=== PATIENT | female | born 1935 | race Caucasian/White ===

== ENCOUNTER 2019-04-02 16:31 | Inpatient (IN) | payer MEDICARE ==
[2019-04-02 16:39] LABS: Glucose,Whole Blood 137 mg/dL (75-99)
[2019-04-02] MEDS ORDERED: SODIUM CHLORIDE 0.9% 500 ML 500 ML IV STA (16:39)
--- NOTE | 2019-04-02 16:48 | ED ---
General Adult HPI - General Chief complaint: Altered Mental Status Stated complaint: Poss overdose Time Seen by Provider: 04/02/19 16:35 Source: EMS, RN notes reviewed Mode of arrival: EMS Limitations: altered mental status - History of Present Illness Initial comments: This is an 83-year-old female presents to the emergency department secondary to her being unresponsive at home. EMS arrived and had a blood sugar in the 20s and they gave her an amp of D50 and it was read high and the next rate and then it was down to 200s on the following week. Patient was not responding to them at all however currently she is able to follow simple commands though she is not yet speaking clearly. She is able to move all 4 extremity. No further history is available at this time. There is no evidence per EMS that she purposely overdosed on insulin. - Related Data Home Medications Medication Instructions Recorded Confirmed Atorvastatin [Lipitor] 40 mg PO DAILY 04/02/19 04/02/19 Cholecalciferol [Vitamin D3 (25 1,000 unit PO DAILY 04/02/19 04/02/19 Mcg = 1000 Iu)] Enalapril/Hydrochlorothiazide 1 tab PO DAILY 04/02/19 04/02/19 [Enalapril-Hctz 10-25 mg Tablet] Insulin Degludec [Tresiba 40 units SQ DAILY 04/02/19 04/02/19 Flextouch U-100] metFORMIN HCL ER [Glucophage Xr] 500 mg PO DAILY 04/02/19 04/02/19 traMADol HCL [Ultram] 50 mg PO Q6HR PRN 04/02/19 04/02/19 Allergies Allergy/AdvReac Type Severity Reaction Status Date / Time Sulfa (Sulfonamide Allergy Severe Anaphylaxis Verified 04/02/19 18:32 Antibiotics) Review of Systems ROS Statement: Those systems with pertinent positive or pertinent negative responses have been documented in the HPI. ROS Other: All systems not noted in ROS Statement are negative. Past Medical History Past Medical History: Diabetes Mellitus Additional Past Medical History / Comment(s): unable to obtain further due to mentation History of Any Multi-Drug Resistant Organisms: Unobtainable Past Surgical History: Unable to Obtain Past Psychological History: Unable to Obtain Smoking Status: Unknown if ever smoked Past Alcohol Use History: Unable to Obtain Past Drug Use History: Unable to Obtain General Exam - General Exam Comments Initial Comments: GENERAL: Patient is well-developed and well-nourished. Patient is nontoxic and well- hydrated and is in no acute distress. ENT: Neck is soft and supple. No significant lymphadenopathy is noted. Oropharynx is clear. Moist mucous membranes. Neck has full range of motion without eliciting any pain. EYES: The sclera were anicteric and conjunctiva were pink and moist. Extraocular movements were intact and pupils were equal round and reactive to light. Eyelids were unremarkable. PULMONARY: Unlabored respirations. Good breath sounds bilaterally. No audible rales rhonchi or wheezing was noted. CARDIOVASCULAR: There is a regular rate and rhythm without any murmurs gallops or rubs. ABDOMEN: Soft and nontender with normal bowel sounds. SKIN: Skin is clear with no lesions or rashes and otherwise unremarkable. NEUROLOGIC: Patient is alert and and able to follow simple commands but not able to speak clearly at this point. Patient is able to move all 4 extremities. MUSCULOSKELETAL: Patient moves all 4 fomites but I cannot get her to move through full range of motion quite yet. LYMPHATICS: No significant lymphadenopathy is noted PSYCHIATRIC: Normal psychiatric evaluation. Limitations: altered mental status Course Vital Signs 04/02/19 04/02/19 04/02/19 16:36 16:58 17:01 Temperature 93.3 F L 93.4 F L Pulse Rate 104 H 109 H Respiratory 24 32 H Rate Blood Pressure 158/95 135/86 O2 Sat by Pulse 90 L 94 L 97 Oximetry 04/02/19 04/02/19 04/02/19 17:21 17:33 17:47 Temperature 93.9 F L 94.3 F L 94.6 F L Pulse Rate 106 H 103 H Respiratory 22 22 Rate Blood Pressure 152/116 135/77 O2 Sat by Pulse 96 95 Oximetry 04/02/19 04/02/19 04/02/19 18:01 18:15 18:25 Temperature 95.0 F L 95.2 F L 95.6 F L Pulse Rate 102 H 98 103 H Respiratory 22 22 22 Rate Blood Pressure 127/98 147/93 O2 Sat by Pulse 93 L 95 97 Oximetry 04/02/19 04/02/19 04/02/19 18:37 18:49 19:00 Temperature 96.0 F L 96.3 F L 96.7 F L Pulse Rate 101 H 98 99 Respiratory 22 20 20 Rate Blood Pressure 169/90 124/78 118/84 O2 Sat by Pulse 98 97 99 Oximetry 04/02/19 19:15 Temperature 97.0 F L Pulse Rate 98 Respiratory 16 Rate Blood Pressure 102/78 O2 Sat by Pulse 98 Oximetry Medical Decision Making - Medical Decision Making EKG shows sinus tachycardia at 105 bpm OK interval 148 QRS is 70 QT interval 354 and QTC is 467. Patient's EKG shows no ST segment elevation. CT of the brain shows no acute abnormality. Chest x-ray shows a right lobe consolidation. Patient started 2 g Rocephin. Patient's sugar continued to fall and 70 so we started the patient on D5 0.45. We ran the rate is 75 an hour. She was much more alert and oriented to her arrival. Patient's temperature was also coming up with the Bakari hugger and warm. I spoke with Dr. elizaebth he agreed to admit the patient admitted the patient wrote admitting orders - Lab Data Result diagrams: 04/02/19 16:45 04/02/19 16:45 Lab Results 04/02/19 04/02/19 04/02/19 Range/Units 16:37 16:45 16:45 WBC 15.4 H (3.8-10.6) k/uL RBC 4.63 (3.80-5.40) m/uL Hgb 13.2 (11.4-16.0) gm/dL Hct 39.7 (34.0-46.0) % MCV 85.9 (80.0-100.0) fL MCH 28.5 (25.0-35.0) pg MCHC 33.2 (31.0-37.0) g/dL RDW 13.6 (11.5-15.5) % Plt Count 414 (150-450) k/uL Neutrophils % 90 % Lymphocytes % 4 % Monocytes % 5 % Eosinophils % 0 % Basophils % 0 % Neutrophils # 13.9 H (1.3-7.7) k/uL Lymphocytes # 0.7 L (1.0-4.8) k/uL Monocytes # 0.8 (0-1.0) k/uL Eosinophils # 0.0 (0-0.7) k/uL Basophils # 0.0 (0-0.2) k/uL PT (9.0-12.0) sec INR (<1.2) APTT (22.0-30.0) sec Sodium 132 L (137-145) mmol/L Potassium 3.5 (3.5-5.1) mmol/L Chloride 98 (98-107) mmol/L Carbon Dioxide 24 (22-30) mmol/L Anion Gap 10 mmol/L BUN 31 H (7-17) mg/dL Creatinine 0.74 (0.52-1.04) mg/dL Est GFR (CKD-EPI)AfAm 87 (>60 ml/min/1.73 sqM) Est GFR (CKD-EPI)NonAf 75 (>60 ml/min/1.73 sqM) Glucose 169 H (74-99) mg/dL POC Glucose (mg/dL) 137 H (75-99) mg/dL POC Glu Assurance Analyst ID Denise Briones Calcium 9.6 (8.4-10.2) mg/dL Magnesium 2.0 (1.6-2.3) mg/dL Total Bilirubin 0.3 (0.2-1.3) mg/dL AST 65 H (14-36) U/L ALT 28 (9-52) U/L Alkaline Phosphatase 124 (38-126) U/L Troponin I (0.000-0.034) ng/mL Total Protein 6.6 (6.3-8.2) g/dL Albumin 3.6 (3.5-5.0) g/dL Urine Color Urine Appearance (Clear) Urine pH (5.0-8.0) Ur Specific [place] (1.001-1.035) Urine Protein (Negative) Urine Glucose (UA) (Negative) Urine Ketones (Negative) Urine Blood (Negative) Urine Nitrite (Negative) Urine Bilirubin (Negative) Urine Urobilinogen (<2.0) mg/dL Ur Leukocyte Esterase (Negative) Urine RBC (0-5) /hpf Urine WBC (0-5) /hpf Urine WBC Clumps (None) /hpf Ur Squamous Epith Cells (0-4) /hpf Urine Bacteria (None) /hpf Urine Mucus (None) /hpf 04/02/19 04/02/19 04/02/19 Range/Units 16:45 16:45 16:45 WBC (3.8-10.6) k/uL RBC (3.80-5.40) m/uL Hgb (11.4-16.0) gm/dL Hct (34.0-46.0) % MCV (80.0-100.0) fL MCH (25.0-35.0) pg MCHC (31.0-37.0) g/dL RDW (11.5-15.5) % Plt Count (150-450) k/uL Neutrophils % % Lymphocytes % % Monocytes % % Eosinophils % % Basophils % % Neutrophils # (1.3-7.7) k/uL Lymphocytes # (1.0-4.8) k/uL Monocytes # (0-1.0) k/uL Eosinophils # (0-0.7) k/uL Basophils # (0-0.2) k/uL PT 10.3 (9.0-12.0) sec INR 1.0 (<1.2) APTT 26.9 (22.0-30.0) sec Sodium (137-145) mmol/L Potassium (3.5-5.1) mmol/L Chloride (98-107) mmol/L Carbon Dioxide (22-30) mmol/L Anion Gap mmol/L BUN (7-17) mg/dL Creatinine (0.52-1.04) mg/dL Est GFR (CKD-EPI)AfAm (>60 ml/min/1.73 sqM) Est GFR (CKD-EPI)NonAf (>60 ml/min/1.73 sqM) Glucose (74-99) mg/dL POC Glucose (mg/dL) (75-99) mg/dL POC Glu Assurance Analyst ID Calcium (8.4-10.2) mg/dL Magnesium (1.6-2.3) mg/dL Total Bilirubin (0.2-1.3) mg/dL AST (14-36) U/L ALT (9-52) U/L Alkaline Phosphatase (38-126) U/L Troponin I <0.012 (0.000-0.034) ng/mL Total Protein (6.3-8.2) g/dL Albumin (3.5-5.0) g/dL Urine Color Yellow Urine Appearance Cloudy H (Clear) Urine pH 5.0 (5.0-8.0) Ur Specific [place] 1.016 (1.001-1.035) Urine Protein 1+ H (Negative) Urine Glucose (UA) Negative (Negative) Urine Ketones Negative (Negative) Urine Blood Negative (Negative) Urine Nitrite Negative (Negative) Urine Bilirubin Negative (Negative) Urine Urobilinogen <2.0 (<2.0) mg/dL Ur Leukocyte Esterase Large H (Negative) Urine RBC 1 (0-5) /hpf Urine WBC 30 H (0-5) /hpf Urine WBC Clumps Few H (None) /hpf Ur Squamous Epith Cells 2 (0-4) /hpf Urine Bacteria Rare H (None) /hpf Urine Mucus Rare H (None) /hpf 04/02/19 04/02/19 04/02/19 Range/Units 17:34 17:51 18:15 WBC (3.8-10.6) k/uL RBC (3.80-5.40) m/uL Hgb (11.4-16.0) gm/dL Hct (34.0-46.0) % MCV (80.0-100.0) fL MCH (25.0-35.0) pg MCHC (31.0-37.0) g/dL RDW (11.5-15.5) % Plt Count (150-450) k/uL Neutrophils % % Lymphocytes % % Monocytes % % Eosinophils % % Basophils % % Neutrophils # (1.3-7.7) k/uL Lymphocytes # (1.0-4.8) k/uL Monocytes # (0-1.0) k/uL Eosinophils # (0-0.7) k/uL Basophils # (0-0.2) k/uL PT (9.0-12.0) sec INR (<1.2) APTT (22.0-30.0) sec Sodium (137-145) mmol/L Potassium (3.5-5.1) mmol/L Chloride (98-107) mmol/L Carbon Dioxide (22-30) mmol/L Anion Gap mmol/L BUN (7-17) mg/dL Creatinine (0.52-1.04) mg/dL Est GFR (CKD-EPI)AfAm (>60 ml/min/1.73 sqM) Est GFR (CKD-EPI)NonAf (>60 ml/min/1.73 sqM) Glucose (74-99) mg/dL POC Glucose (mg/dL) 101 H 68 L 207 H (75-99) mg/dL POC Glu Assurance Analyst ID Wiseheart, Denise Wiseheart, Denise Wiseheart, Denise Calcium (8.4-10.2) mg/dL Magnesium (1.6-2.3) mg/dL Total Bilirubin (0.2-1.3) mg/dL AST (14-36) U/L ALT (9-52) U/L Alkaline Phosphatase (38-126) U/L Troponin I (0.000-0.034) ng/mL Total Protein (6.3-8.2) g/dL Albumin (3.5-5.0) g/dL Urine Color Urine Appearance (Clear) Urine pH (5.0-8.0) Ur Specific [place] (1.001-1.035) Urine Protein (Negative) Urine Glucose (UA) (Negative) Urine Ketones (Negative) Urine Blood (Negative) Urine Nitrite (Negative) Urine Bilirubin (Negative) Urine Urobilinogen (<2.0) mg/dL Ur Leukocyte Esterase (Negative) Urine RBC (0-5) /hpf Urine WBC (0-5) /hpf Urine WBC Clumps (None) /hpf Ur Squamous Epith Cells (0-4) /hpf Urine Bacteria (None) /hpf Urine Mucus (None) /hpf 04/02/19 04/02/19 04/02/19 Range/Units 18:32 18:47 19:13 WBC (3.8-10.6) k/uL RBC (3.80-5.40) m/uL Hgb (11.4-16.0) gm/dL Hct (34.0-46.0) % MCV (80.0-100.0) fL MCH (25.0-35.0) pg MCHC (31.0-37.0) g/dL RDW (11.5-15.5) % Plt Count (150-450) k/uL Neutrophils % % Lymphocytes % % Monocytes % % Eosinophils % % Basophils % % Neutrophils # (1.3-7.7) k/uL Lymphocytes # (1.0-4.8) k/uL Monocytes # (0-1.0) k/uL Eosinophils # (0-0.7) k/uL Basophils # (0-0.2) k/uL PT (9.0-12.0) sec INR (<1.2) APTT (22.0-30.0) sec Sodium (137-145) mmol/L Potassium (3.5-5.1) mmol/L Chloride (98-107) mmol/L Carbon Dioxide (22-30) mmol/L Anion Gap mmol/L BUN (7-17) mg/dL Creatinine (0.52-1.04) mg/dL Est GFR (CKD-EPI)AfAm (>60 ml/min/1.73 sqM) Est GFR (CKD-EPI)NonAf (>60 ml/min/1.73 sqM) Glucose (74-99) mg/dL POC Glucose (mg/dL) 140 H 115 H 87 (75-99) mg/dL POC Glu Assurance Analyst ID Jay, Paola Wiseheart, Denise Wiseheart, Denise Calcium (8.4-10.2) mg/dL Magnesium (1.6-2.3) mg/dL Total Bilirubin (0.2-1.3) mg/dL AST (14-36) U/L ALT (9-52) U/L Alkaline Phosphatase (38-126) U/L Troponin I (0.000-0.034) ng/mL Total Protein (6.3-8.2) g/dL Albumin (3.5-5.0) g/dL Urine Color Urine Appearance (Clear) Urine pH (5.0-8.0) Ur Specific [place] (1.001-1.035) Urine Protein (Negative) Urine Glucose (UA) (Negative) Urine Ketones (Negative) Urine Blood (Negative) Urine Nitrite (Negative) Urine Bilirubin (Negative) Urine Urobilinogen (<2.0) mg/dL Ur Leukocyte Esterase (Negative) Urine RBC (0-5) /hpf Urine WBC (0-5) /hpf Urine WBC Clumps (None) /hpf Ur Squamous Epith Cells (0-4) /hpf Urine Bacteria (None) /hpf Urine Mucus (None) /hpf Disposition Clinical Impression: Altered mental status, Hypoglycemia, Pneumonia, Hyponatremia, Urinary tract infection Disposition: ADMITTED IP TO THIS HOSP Referrals: None,Stated [Primary Care Provider] - 1-2 days Time of Disposition: 19:21
[2019-04-02 17:10] LABS: Appearance,Urine Cloudy (Clear); Bacteria,Urine Rare /hpf; Bilirubin,Urine Negative (Negative); Blood,Urine Negative (Negative); Color,Urine Yellow; Glucose,Urine (UA) Negative (Negative); Ketones,Urine Negative (Negative); Leukocyte Esterase,Urine Large (Negative); Mucus,Urine Rare /hpf; Nitrite,Urine Negative (Negative); Protein,Urine 1+ (Negative); RBC,Urine 1 /hpf (0-5); Specific Gravity,Urine 1.016 (1.001-1.035); Squamous Epithelial Cell,Urine 2 /hpf (0-4); Urobilinogen,Urine <2.0 mg/dL (<2.0); WBC,Urine 30 /hpf (0-5)
[2019-04-02 17:15] LABS: Partial Thromboplastin Time 26.9 sec (22.0-30.0); Prothrombin Time 10.3 sec (9.0-12.0)
[2019-04-02 17:17] LABS: Albumin 3.6 g/dL (3.5-5.0); Calcium 9.6 mg/dL (8.4-10.2); Potassium 3.5 mmol/L (3.5-5.1); Total Bilirubin 0.3 mg/dL (0.2-1.3); Total Protein 6.6 g/dL (6.3-8.2)
[2019-04-02 17:27] LABS: Basophils % (A) 0 %; Eosinophils % (A) 0 %; HCT 39.7 % (34.0-46.0); HGB 13.2 gm/dL (11.4-16.0); Lymphocytes # (A) 0.7 k/uL (1.0-4.8); Lymphocytes % (A) 4 %; MCH 28.5 pg (25.0-35.0); MCHC 33.2 g/dL (31.0-37.0); MCV 85.9 fL (80.0-100.0); Monocytes # (A) 0.8 k/uL (0-1.0); Monocytes % (A) 5 %; Neutrophils # (A) 13.9 k/uL (1.3-7.7); Neutrophils % (A) 90 %; Platelet Count 414 k/uL (150-450); RBC 4.63 m/uL (3.80-5.40); RDW 13.6 % (11.5-15.5); WBC 15.4 k/uL (3.8-10.6)
[2019-04-02] MEDS ORDERED: DEXTROSE 50% SYRINGE 50 ML IVP STA ×2 (17:53→20:47)
--- NOTE | 2019-04-02 18:09 | CT ---
EXAMINATION: CT brain wo con DATE AND TIME: 04/02/2019 5:33 PM CLINICAL INDICATION: PHH; Pain TECHNIQUE: Standard departmental protocol.; 1322.4; COMPARISON: 12/31/2009 FINDINGS: The calvarium is intact. There is no intracranial hemorrhage. There is no intracranial mass or mass effect. No definite new intra-axial or extra-axial attenuation defect. The paranasal sinuses, middle ear cavities, and mastoid sinus air cells are clear. The orbits are unremarkable. IMPRESSION: NO ACUTE PROCESS.
[2019-04-02 18:11] LABS: Glucose,Whole Blood 68 mg/dL (75-99)
[2019-04-02 18:11] LABS: Glucose,Whole Blood 101 mg/dL (75-99)
[2019-04-02 18:22] LABS: Glucose,Whole Blood 207 mg/dL (75-99)
[2019-04-02 18:33] LABS: Glucose,Whole Blood 140 mg/dL (75-99)
--- NOTE | 2019-04-02 18:53 | XR ---
EXAMINATION: XR chest 2V DATE AND TIME: 04/02/2019 5:42 PM CLINICAL INDICATION: PHH; Chest Pain TECHNIQUE: Departmental protocol COMPARISON: None FINDINGS: There is dense consolidation throughout the right lung parenchyma, seen on both the frontal and later al radiographs. The changes are consistent with a differential diagnosis of pneumonia versus pulmonar y contusion. There is no pulmonary edema. The pleural spaces are negative. The cardiomediastinal silhouette and bones and soft tissues are unremarkable. IMPRESSION: Prominent pulmonary consolidation throughout the right lung parenchyma.
[2019-04-02 18:55] LABS: Glucose,Whole Blood 115 mg/dL (75-99)
[2019-04-02] MEDS ORDERED: DEXTROSE 5%-0.45% NACL 1,000 ML IV ONE (19:01)
[2019-04-02 19:15] LABS: Glucose,Whole Blood 87 mg/dL (75-99)
[2019-04-02] MEDS ORDERED: AZITHROMYCIN 500 MG in SODIUM CHLORIDE 0.9% 250 ML IVPB STA (19:22)
[2019-04-02] MEDS ORDERED: PNEUMONIA PROTOCOL UTILIZED 1 EACH MISC PO PRN (19:22)
[2019-04-02 20:41] LABS: Glucose,Whole Blood 61 mg/dL (75-99)
[2019-04-02 21:21] LABS: Glucose,Whole Blood 99 mg/dL (75-99)
[2019-04-02 22:18] LABS: Glucose,Whole Blood 58 mg/dL (75-99)
[2019-04-03 00:18] LABS: Glucose,Whole Blood 55 mg/dL (75-99)
[2019-04-03] MEDS: CLINDAMYCIN 600 MG in DEXTROSE 5% IN WATER 50 ML IVPB SCH ×8 (00:29→22:58)
[2019-04-03] MEDS: DEXTROSE 5%-0.9% NACL 1,000 ML IV SCH ×2 (00:29→10:37)
[2019-04-03 01:30] LABS: Glucose,Whole Blood 81 mg/dL (75-99)
[2019-04-03] MEDS ORDERED: ACETAMINOPHEN TAB 325 MG TAB PO PRN (02:18)
[2019-04-03 03:09] LABS: Glucose,Whole Blood 90 mg/dL (75-99)
[2019-04-03 06:17] LABS: Glucose,Whole Blood 92 mg/dL (75-99)
[2019-04-03] MEDS ORDERED: GLUCAGON 1 MG/ML VIAL IM STA (07:04)
[2019-04-03 07:09] LABS: Glucose,Whole Blood 80 mg/dL (75-99)
--- NOTE | 2019-04-03 07:15 | P.HPIM ---
History of Present Illness This is a pleasant 53 years old female with past medical history of diabetes mellitus, hyperlipidemia, hypertension, rheumatoid arthritis, colon cancer. Presents with altered mental status associated with hyperglycemia, patient is poor historian. Son is at bedside who lives with her. Patient has been feeling sick for the last couple days with a breathing problems And coughing.. Patient has been not waking up the whole morning yesterday afternoon when this came back. So the [place] to the emergency room. On admission her blood sugar was in the 20s and she received D50 his injections and placed on D5 fluids. Her sugars start correcting to normal levels and patient started waking up. This morning patient is more awake but looks tired and elevated disoriented. She knows where she is in the hospital but she cannot give much information. As per son patient was started on new dose insulin last week by her PCP Dr. Waters. On admission also patient was tachypneic and chest x-ray showing right pneumonia. Patient is a known diabetic was on metformin 500 mg daily and insulin decludec 40 units daily On admission patient is been afebrile. Blood pressure dropped from 158/95 down to 1 or 2/78. Currently her blood pressure 133/67. She is saturating 95% and 2 L nasal cannula and respiratory 28/m. She is mildly tachycardic around 100. Labs reviewed showing WBC of 15.4 K. Risks of CBC is unremarkable. INR is within normal. Sugar was troponin down to 55 while on therapy, currently her sugar is 92. AST mildly elevated at 65, rest of liver enzymes are within normal. Troponin is negative less than 0.012. EKG showing sinus tachycardia at 105 with QTC 467, no significant ST-T changes.brain CT: No acute event. Chest x-ray: Prominent pulmonary consolidation on the right lung reviewed urinalysis shows cloudy and showing large leukocyte esterase On admission patient been resuscitated with IV fluids and place it on D5 fluids. Also she was started on antibiotic Zithromax and ceftriaxone. Review of Systems CONSTITUTIONAL: No fever, no malaise, no fatigue. HEENT: No recent visual problems or hearing problems. Denied any sore throat. CARDIOVASCULAR: No orthopnea, PND, no palpitations, no syncope. PULMONARY: No shortness of breath, no cough, no hemoptysis. GASTROINTESTINAL: No diarrhea, no nausea, no vomiting, no abdominal pain. Normoactive bowel sounds. NEUROLOGICAL: No headaches, no weakness, no numbness. HEMATOLOGICAL: Denies any bleeding or petechiae. GENITOURINARY: Denies any burning micturition, frequency, or urgency. MUSCULOSKELETAL/RHEUMATOLOGICAL: Denies any joint pain, swelling, or any muscle pain. ENDOCRINE: Denies any polyuria or polydipsia. Past Medical History Past Medical History: Cancer, Diabetes Mellitus, Hyperlipidemia, Hypertension Additional Past Medical History / Comment(s): colon cancer History of Any Multi-Drug Resistant Organisms: Unobtainable Past Surgical History: Unable to Obtain Additional Past Surgical History / Comment(s): removal of colon cancer, RT carotid endartectomy Past Anesthesia/Blood Transfusion Reactions: No Reported Reaction Past Psychological History: Unable to Obtain Smoking Status: Former smoker Past Alcohol Use History: None Reported Past Drug Use History: None Reported Medications and Allergies Home Medications Medication Instructions Recorded Confirmed Type Atorvastatin [Lipitor] 40 mg PO DAILY 04/02/19 04/02/19 History Cholecalciferol [Vitamin D3 (25 1,000 unit PO DAILY 04/02/19 04/02/19 History Mcg = 1000 Iu)] Enalapril/Hydrochlorothiazide 1 tab PO DAILY 04/02/19 04/02/19 History [Enalapril-Hctz 10-25 mg Tablet] Insulin Degludec [Tresiba 40 units SQ DAILY 04/02/19 04/02/19 History Flextouch U-100] metFORMIN HCL ER [Glucophage Xr] 500 mg PO DAILY 04/02/19 04/02/19 History traMADol HCL [Ultram] 50 mg PO Q6HR PRN 04/02/19 04/02/19 History Allergies Allergy/AdvReac Type Severity Reaction Status Date / Time Sulfa (Sulfonamide Allergy Severe Anaphylaxis Verified 04/02/19 18:32 Antibiotics) Physical Exam Vitals: Vital Signs Temp Pulse Pulse Resp BP BP Pulse Ox 04/03/19 04:00 99.2 F 98 28 H 133/67 95 04/03/19 00:00 98.6 F 101 H 30 H 126/71 98 04/02/19 22:03 97.3 F L 95 22 132/85 99 04/02/19 20:31 98.5 F 04/02/19 20:24 93 20 113/77 99 04/02/19 20:10 98.6 F 101 H 30 H 126/71 98 04/02/19 19:15 97.0 F L 98 16 102/78 98 04/02/19 19:00 96.7 F L 99 20 118/84 99 04/02/19 18:49 96.3 F L 98 20 124/78 97 04/02/19 18:37 96.0 F L 101 H 22 169/90 98 04/02/19 18:25 95.6 F L 103 H 22 97 04/02/19 18:15 95.2 F L 98 22 147/93 95 04/02/19 18:01 95.0 F L 102 H 22 127/98 93 L 04/02/19 17:47 94.6 F L 103 H 22 135/77 95 04/02/19 17:33 94.3 F L 04/02/19 17:21 93.9 F L 106 H 22 152/116 96 04/02/19 17:01 93.4 F L 135/86 97 04/02/19 16:58 93.3 F L 109 H 32 H 158/95 94 L 04/02/19 16:36 104 H 24 90 L Intake and Output 04/02/19 04/02/19 04/03/19 14:59 22:59 06:59 Output Total 625 Balance -625 Output: Urine 625 Other: Voiding Method Indwelling Catheter Weight 79.379 kg -GENERAL: The patient is alert and oriented x2-3, not in any acute distress. Obese HEENT: Pupils are round and equally reacting to light. EOMI. No scleral icterus. No conjunctival pallor. Normocephalic, atraumatic. No pharyngeal erythema. No thyromegaly. CARDIOVASCULAR: S1 and S2 present. No murmurs, rubs, or gallops. -PULMONARY: Chest is clear to auscultation, no wheezing or crackles. The. Right side harsh breath sounds ABDOMEN: Soft, nontender, nondistended, normoactive bowel sounds. No palpable organomegaly. MUSCULOSKELETAL: No joint swelling or deformity. EXTREMITIES: No cyanosis, clubbing, or pedal edema. Rheumatoid arthritis fingers, chronic- NEUROLOGICAL: Gross neurological examination did not reveal any focal deficits. SKIN: No rashes. Results CBC & Chem 7: 04/02/19 16:45 04/02/19 16:45 Labs: Abnormal Lab Results - Last 24 Hours (Table) 04/02/19 04/02/19 04/02/19 Range/Units 16:37 16:45 16:45 WBC 15.4 H (3.8-10.6) k/uL Neutrophils # 13.9 H (1.3-7.7) k/uL Lymphocytes # 0.7 L (1.0-4.8) k/uL Sodium 132 L (137-145) mmol/L BUN 31 H (7-17) mg/dL Glucose 169 H (74-99) mg/dL POC Glucose (mg/dL) 137 H (75-99) mg/dL AST 65 H (14-36) U/L Urine Appearance (Clear) Urine Protein (Negative) Ur Leukocyte Esterase (Negative) Urine WBC (0-5) /hpf Urine WBC Clumps (None) /hpf Urine Bacteria (None) /hpf Urine Mucus (None) /hpf 04/02/19 04/02/19 04/02/19 Range/Units 16:45 17:34 17:51 WBC (3.8-10.6) k/uL Neutrophils # (1.3-7.7) k/uL Lymphocytes # (1.0-4.8) k/uL Sodium (137-145) mmol/L BUN (7-17) mg/dL Glucose (74-99) mg/dL POC Glucose (mg/dL) 101 H 68 L (75-99) mg/dL AST (14-36) U/L Urine Appearance Cloudy H (Clear) Urine Protein 1+ H (Negative) Ur Leukocyte Esterase Large H (Negative) Urine WBC 30 H (0-5) /hpf Urine WBC Clumps Few H (None) /hpf Urine Bacteria Rare H (None) /hpf Urine Mucus Rare H (None) /hpf 04/02/19 04/02/19 04/02/19 Range/Units 18:15 18:32 18:47 WBC (3.8-10.6) k/uL Neutrophils # (1.3-7.7) k/uL Lymphocytes # (1.0-4.8) k/uL Sodium (137-145) mmol/L BUN (7-17) mg/dL Glucose (74-99) mg/dL POC Glucose (mg/dL) 207 H 140 H 115 H (75-99) mg/dL AST (14-36) U/L Urine Appearance (Clear) Urine Protein (Negative) Ur Leukocyte Esterase (Negative) Urine WBC (0-5) /hpf Urine WBC Clumps (None) /hpf Urine Bacteria (None) /hpf Urine Mucus (None) /hpf 04/02/19 04/02/19 04/03/19 Range/Units 20:39 22:07 00:07 WBC (3.8-10.6) k/uL Neutrophils # (1.3-7.7) k/uL Lymphocytes # (1.0-4.8) k/uL Sodium (137-145) mmol/L BUN (7-17) mg/dL Glucose (74-99) mg/dL POC Glucose (mg/dL) 61 L 58 L 55 L (75-99) mg/dL AST (14-36) U/L Urine Appearance (Clear) Urine Protein (Negative) Ur Leukocyte Esterase (Negative) Urine WBC (0-5) /hpf Urine WBC Clumps (None) /hpf Urine Bacteria (None) /hpf Urine Mucus (None) /hpf Thrombosis Risk Factor Assmnt - Choose All That Apply Any of the Below Risk Factors Present?: Yes Each Factor Represents 1 point: Medical pt on bed rest, Serious lung disease incl. pneumonia (< 1month) Other Risk Factors: Yes Each Risk Factor Represents 3 Points: Age 75 years or older Other congenital or acquired thrombophilia - If yes, enter type in comment: No Thrombosis Risk Factor Assessment Total Risk Factor Score: 5 Thrombosis Risk Factor Assessment Level: High Risk Assessment and Plan Assessment: Acute community-acquired right pneumonia Possible UTI, less likely History of diabetes mellitus with hyperglycemia Hyponatremia Essential hypertension Hyperlipidemia History of colon cancer, about 10 years ago. therapy currently history of rheumatoid arthritis Plan: This is a pleasant 83 years old female who presents with pneumonia and hypoglycemia. Continue with glucose monitoring and management and try to keep it in the normal range. Continue with insulin sliding scale, give glucagon when necessary for hypoglycemia. Continue with antibiotics and IV fluids. Call pulmonary consult. Check influenza Labs and medication were reviewed.. Continue same treatment. Continue with symptomatic treatment. Resume home medication. Monitor lytes and vitals. DVT and GI prophylaxis. Further recommendations of the clinical course of the patient DVT prophylaxis: Subcutaneous heparin GI Prophylaxis: Pepcid PT/OT: Pending Prognosis is guarded
[2019-04-03] MEDS ORDERED: DEXTROSE 50% SYRINGE 50 ML IVP PRN (07:23)
[2019-04-03 07:39] LABS: Albumin 3.2 g/dL (3.5-5.0); Bilirubin,Unconjugated 0.4 mg/dL (0.0-1.1); Calcium 9.2 mg/dL (8.4-10.2); Total Bilirubin 0.4 mg/dL (0.2-1.3); Total Protein 6.1 g/dL (6.3-8.2)
[2019-04-03] MEDS: INSULIN ASPART (NovoLOG) 100 UNIT/ML VIAL SQ SCH ×4 (07:53→21:43)
[2019-04-03 08:07] LABS: Basophils % (A) 0 %; Eosinophils % (A) 0 %; HGB 11.2 gm/dL (11.4-16.0); Lymphocytes # (A) 0.9 k/uL (1.0-4.8); Lymphocytes % (A) 4 %; MCH 28.7 pg (25.0-35.0); MCHC 33.1 g/dL (31.0-37.0); MCV 86.7 fL (80.0-100.0); Monocytes # (A) 1.1 k/uL (0-1.0); Monocytes % (A) 5 %; Neutrophils # (A) 19.9 k/uL (1.3-7.7); Neutrophils % (A) 90 %; Platelet Count 365 k/uL (150-450); RBC 3.92 m/uL (3.80-5.40); RDW 13.9 % (11.5-15.5); WBC 22.1 k/uL (3.8-10.6)
--- NOTE | 2019-04-03 08:28 | XR ---
EXAMINATION TYPE: XR chest 2V DATE OF EXAM: 04/03/2019 COMPARISON: Prior chest x-ray 04/02/2019 HISTORY: Pneumonia TECHNIQUE: Frontal and lateral views of the chest are obtained. FINDINGS: Airspace disease persists in the right upper lobe. No pneumothorax or pleural effusion. Th ere may be a spinal curvature. Cardiac mediastinal silhouette, pulmonary vascularity and christ are unc hanged. IMPRESSION: Findings compatible with patient's history of pneumonia. Follow-up to resolution.
[2019-04-03] MEDS: AZITHROMYCIN 500 MG TAB PO SCH ×2 (08:43→08:52)
[2019-04-03] MEDS: HEPARIN SODIUM,PORCINE 5,000 UNIT/ML 1 ML VIAL SQ SCH ×2 (08:44→21:43)
[2019-04-03] MEDS ORDERED: FAMOTIDINE 20 MG/2 ML VIAL IV SCH (09:00)
[2019-04-03] MEDS: DEXTROSE 5%-0.45% NACL 1,000 ML IV SCH (09:04)
[2019-04-03 09:20] LABS: Glucose,Whole Blood 135 mg/dL (75-99)
[2019-04-03] MEDS ORDERED: MORPHINE SULFATE 2 MG/ML SYRINGE IVP PRN (10:41)
[2019-04-03] MEDS ORDERED: TRIMETHOBENZAMIDE 300 MG CAP PO PRN (10:42)
--- NOTE | 2019-04-03 13:08 | P.CRDCN ---
History of Present Illness Consult date: 04/03/19 Requesting physician: Lang E Annia Reason for Consult (text): Abnormal trops Chief complaint: unresponsiveness History of present illness: Is a pleasant 43-year-old female with past medical history significant for diabetes, hyperlipidemia, hypertension, rheumatoid arthritis, colon cancer, most of the history was obtained from the son who is at bedside. He states that he found her somewhat unresponsive, checked her blood sugars at home which were in the 20 range, she did receive D50 in the emergency room for this. Blood pressure 140/60 with a heart rate in the 90s, 98% on 2 L of oxygen. White blood cell count 15.4 on admission, 22.1 today, hemoglobin 11.2, platelet count 365. Sodium 133, potassium 4.0, BUN 37 creatinine 1.2. Troponins 0.012, some 0.047. Positive UTI. Chest x-ray showed prominent pulmonary consolidation throughout the right lung. CAT scan of the brain did not reveal any acute process. EKG shows a sinus tachycardia with nonspecific ST-T wave changes. Radiology consultation was requested because of abnormal troponins. Patient denies having any chest discomfort. It was explained to the patient and the son that we would request an echocardiogram with Doppler study. He has refused for her to have any further testing. Past Medical History Past Medical History: Cancer, Diabetes Mellitus, Hyperlipidemia, Hypertension Additional Past Medical History / Comment(s): colon cancer History of Any Multi-Drug Resistant Organisms: Unobtainable Past Surgical History: Unable to Obtain Additional Past Surgical History / Comment(s): removal of colon cancer, RT carotid endartectomy Past Anesthesia/Blood Transfusion Reactions: No Reported Reaction Past Psychological History: Unable to Obtain Smoking Status: Former smoker Past Alcohol Use History: None Reported Past Drug Use History: None Reported Medications and Allergies Home Medications Medication Instructions Recorded Confirmed Type Atorvastatin [Lipitor] 40 mg PO DAILY 04/02/19 04/02/19 History Cholecalciferol [Vitamin D3 (25 1,000 unit PO DAILY 04/02/19 04/02/19 History Mcg = 1000 Iu)] Enalapril/Hydrochlorothiazide 1 tab PO DAILY 04/02/19 04/02/19 History [Enalapril-Hctz 10-25 mg Tablet] Insulin Degludec [Tresiba 40 units SQ DAILY 04/02/19 04/02/19 History Flextouch U-100] metFORMIN HCL ER [Glucophage Xr] 500 mg PO DAILY 04/02/19 04/02/19 History traMADol HCL [Ultram] 50 mg PO Q6HR PRN 04/02/19 04/02/19 History Allergies Allergy/AdvReac Type Severity Reaction Status Date / Time Sulfa (Sulfonamide Allergy Severe Anaphylaxis Verified 04/02/19 18:32 Antibiotics) Physical Exam Vitals: Vital Signs Temp Pulse Pulse Resp BP BP Pulse Ox 04/03/19 08:15 98.3 F 95 24 140/65 98 04/03/19 04:00 99.2 F 98 28 H 133/67 95 04/03/19 00:00 98.6 F 101 H 30 H 126/71 98 04/02/19 22:03 97.3 F L 95 22 132/85 99 04/02/19 20:31 98.5 F 04/02/19 20:24 93 20 113/77 99 04/02/19 20:10 98.6 F 101 H 30 H 126/71 98 04/02/19 19:15 97.0 F L 98 16 102/78 98 04/02/19 19:00 96.7 F L 99 20 118/84 99 04/02/19 18:49 96.3 F L 98 20 124/78 97 04/02/19 18:37 96.0 F L 101 H 22 169/90 98 04/02/19 18:25 95.6 F L 103 H 22 97 04/02/19 18:15 95.2 F L 98 22 147/93 95 04/02/19 18:01 95.0 F L 102 H 22 127/98 93 L 04/02/19 17:47 94.6 F L 103 H 22 135/77 95 04/02/19 17:33 94.3 F L 04/02/19 17:21 93.9 F L 106 H 22 152/116 96 04/02/19 17:01 93.4 F L 135/86 97 04/02/19 16:58 93.3 F L 109 H 32 H 158/95 94 L 04/02/19 16:36 104 H 24 90 L Intake and Output 04/02/19 04/03/19 04/03/19 22:59 06:59 14:59 Output Total 625 0 Balance -625 0 Output: Urine 625 Stool 0 Other: Voiding Method Indwelling Catheter Indwelling Catheter Weight 79.379 kg PHYSICAL EXAMINATION: GENERAL: 83-year-old female in no acute distress at the time of my examination HEENT: Head is atraumatic, normocephalic. Pupils equal, round. Sclera anicteric. Conjunctiva are clear. Mucous membranes of the mouth are moist. Neck is supple. There is no elevated jugular venous pressure.No Carotid bruit is heard. HEART EXAMINATION: S1 and S2 systolic murmur is heard CHEST EXAMINATION: Lungs reveal coarse crackles bilaterally with expiratory wheezing noted. ABDOMEN: Soft, nontender. Bowel sounds are heard. No organomegaly noted. EXTREMITIES: 2+ peripheral pulses with no evidence of peripheral edema and no calf tenderness noted. NEUROLOGIC patient is awake, alert and oriented 2 . . Results 04/03/19 07:14 04/03/19 07:14 Cardiac Enzymes 04/02/19 04/02/19 04/03/19 Range/Units 16:45 16:45 07:14 AST 65 H 133 H (14-36) U/L Troponin I <0.012 (0.000-0.034) ng/mL 04/03/19 Range/Units 07:14 AST (14-36) U/L Troponin I 0.047 H* (0.000-0.034) ng/mL Coagulation 04/02/19 Range/Units 16:45 PT 10.3 (9.0-12.0) sec APTT 26.9 (22.0-30.0) sec CBC 04/02/19 04/03/19 Range/Units 16:45 07:14 WBC 15.4 H 22.1 H (3.8-10.6) k/uL RBC 4.63 3.92 (3.80-5.40) m/uL Hgb 13.2 11.2 L (11.4-16.0) gm/dL Hct 39.7 34.0 (34.0-46.0) % Plt Count 414 365 (150-450) k/uL Comprehensive Metabolic Panel 04/02/19 04/03/19 Range/Units 16:45 07:14 Sodium 132 L 133 L (137-145) mmol/L Potassium 3.5 4.0 (3.5-5.1) mmol/L Chloride 98 101 (98-107) mmol/L Carbon Dioxide 24 24 (22-30) mmol/L BUN 31 H 37 H (7-17) mg/dL Creatinine 0.74 1.21 H (0.52-1.04) mg/dL Glucose 169 H 78 (74-99) mg/dL Calcium 9.6 9.2 (8.4-10.2) mg/dL Unconjugated Bilirubin 0.4 (0.0-1.1) mg/dL AST 65 H 133 H (14-36) U/L ALT 28 36 (9-52) U/L Alkaline Phosphatase 124 95 (38-126) U/L Total Protein 6.6 6.1 L (6.3-8.2) g/dL Albumin 3.6 3.2 L (3.5-5.0) g/dL Current Medications Generic Name Dose Route Start Last Admin Trade Name Freq PRN Reason Stop Dose Admin Acetaminophen 650 mg 04/03/19 02:18 Tylenol Tab PO Q6HR PRN Fever and/ or Pain Azithromycin 500 mg 04/03/19 09:00 04/03/19 08:52 Zithromax PO Not Given DAILY YUDELKA Dextrose/Water 50 ml 04/03/19 07:23 Dextrose 50% Syringe IVP Q4HR PRN Hypoglycemia Famotidine 20 mg 04/03/19 09:00 04/03/19 08:43 Pepcid IV 20 mg Q12HR YUDELKA Administration Heparin Sodium (Porcine) 5,000 unit 04/03/19 09:00 04/03/19 08:44 Heparin SQ 5,000 unit Q12HR YUDELKA Administration Ceftriaxone Sodium 1 gm/ 50 mls @ 100 mls/hr 04/03/19 12:00 04/03/19 11:18 Sodium Chloride IVPB 04/06/19 12:01 100 mls/hr Q24HR YUDELKA Administration Clindamycin Phosphate 600 mg/ 54 mls @ 50 mls/hr 04/03/19 00:00 04/03/19 08:43 Dextrose/Water IVPB 04/13/19 00:01 50 mls/hr Q8HR YUDELKA Administration Dextrose/Sodium Chloride 1,000 mls @ 50 mls/hr 04/03/19 08:00 04/03/19 09:04 Dextrose 5%-1/2ns Iv Soln IV 50 mls/hr .Q20H YUDELKA Administration Insulin Aspart 0 unit 04/03/19 07:30 04/03/19 07:53 Novolog SQ Not Given ACHS [facility] Protocol Miscellaneous Information 1 each 04/02/19 19:22 Pneumonia Protocol Utilized PO ONCE PRN Per Protocol Morphine Sulfate 2 mg 04/03/19 10:41 04/03/19 11:18 Morphine Sulfate (Inj) IVP 2 mg Q12H PRN Administration Pain/Discomfort Tramadol HCl 50 mg 04/03/19 10:41 Ultram PO QID PRN Pain Control Trimethobenzamide HCl 300 mg 04/03/19 10:42 04/03/19 12:06 Tigan PO 300 mg QID PRN Administration Nausea And Vomiting Intake and Output 04/02/19 04/03/19 04/03/19 22:59 06:59 14:59 Output Total 625 0 Balance -625 0 Output: Urine 625 Stool 0 Other: Voiding Method Indwelling Catheter Indwelling Catheter Weight 79.379 kg 04/03/19 07:14 04/03/19 07:14 EKG Interpretations (text) EKG shows a sinus tachycardia with nonspecific ST-T wave changes Assessment and Plan Plan: Assessment and plan #1 pneumonia #2 UTI #3 abnormal troponins, likely secondary to infection #4 hyponatremia #5 hypertension #6 diabetes #7 hyperlipidemia on the low blood sugar on arrival here of 20 #8 history of colon cancer Plan Patient and family are refusing at this time to have an echocardiogram with Doppler study performed, troponin abnormality not consistent with acute coronary syndrome. We will start the patient on a baby aspirin, and initiate low-dose of beta isaura to optimize blood pressure and heart rate control. We will follow this patient with you on an as-needed basis only, please don't hesitate to call with any questions. DNP note has been reviewed, I agree with a documented findings and plan of care. Patient was seen and examined.
[2019-04-03 13:09] LABS: Glucose,Whole Blood 82 mg/dL (75-99)
[2019-04-03 15:02] LABS: Glucose,Whole Blood 81 mg/dL (75-99)
[2019-04-03] MEDS: METOPROLOL SUCCINATE (ER) 25 MG TAB.ER.24H PO SCH (16:09)
[2019-04-03 17:30] LABS: Glucose,Whole Blood 125 mg/dL (75-99)
--- NOTE | 2019-04-03 18:20 | P.CNPUL ---
History of Present Illness Consult date: 04/03/19 Reason for consult: dyspnea, pneumonia History of present illness: 53-year-old female patient presented to the emergency department yesterday b ecause of altered mentation. The patient is a poor historian. Information was obtained by the son was at the bedside. The patient was feeling sick for the past couple of days and she was having increased dyspnea cough chest tightness and congestion. She progressively also developed some altered mentation. She was not walking and she was feeling extremely weak. For that reason she was brought into the ED. Blood sugar initially was in the low 20s. She received D50 injection and she was started on D5 infusion. Her blood sugars gradually improved following that. She is known to be diabetic and the patient has been taking metformin and trasiba for blood sugar control now patient bases. Chest x-ray was also done and the patient was found to have an extensive right lung consolidation consistent with pneumonia. Her white cell count was 22. The creatinine was at 1.2. There was a limited troponin leak with troponin level of 0.04. Influenza screen was negative. The patient's the patient's lactic acid level was at 1.9. The patient was started on Rocephin and Zithromax and she was admitted to the telemetry unit and a cardiology consultation and a pulmonary consultation was requested. The CT of the brain showed no acute process. EKG showed sinus tachycardia. No ST segment elevation or depression. No signs of an acute myocardial injury. Heart rate was 105. Currently the patient is on a D5 half-normal saline at the rate of 50 mL an hour. He is on heparin subcu for DVT prophylaxis. Outpatient medications have been resumed. The current antibiotic coverage includes a combination of Zithromax and ceftriaxone and clindamycin. Review of Systems Constitutional: Reports daytime sleepiness, Reports fatigue, Reports lethargy, Reports poor appetite, Reports weakness Eyes: denies as per HPI, denies blurred vision, denies bulging eye, denies decreased vision Ears: deny: decreased hearing, ear discharge, earache, tinnitus Ears, nose, mouth and throat: Denies headache, Denies sore throat Cardiovascular: Reports dyspnea on exertion Respiratory: Reports congestion, Reports cough, Reports dyspnea Gastrointestinal: Reports as per HPI Musculoskeletal: Denies myalgias Musculoskeletal: absent: ankle pain, ankle stiffness, ankle swelling Integumentary: Reports as per HPI, Reports darkening of skin Neurological: Reports weakness Psychiatric: Reports as per HPI, Reports confusion Endocrine: Reports as per HPI Allergic/Immunologic: Reports as per HPI Past Medical History Past Medical History: Cancer, Diabetes Mellitus, Hyperlipidemia, Hypertension, Osteoarthritis (OA) Additional Past Medical History / Comment(s): colon cancer, cardiac murmur, diabetes, hypertension, hyperlipidemia, cardiac artery disease History of Any Multi-Drug Resistant Organisms: Unobtainable Past Surgical History: Unable to Obtain Additional Past Surgical History / Comment(s): Colectomy for colon cancer, RT carotid endartectomy Past Anesthesia/Blood Transfusion Reactions: No Reported Reaction Past Psychological History: Unable to Obtain Smoking Status: Former smoker Past Alcohol Use History: None Reported Past Drug Use History: None Reported Medications and Allergies Home Medications Medication Instructions Recorded Confirmed Type Atorvastatin [Lipitor] 40 mg PO DAILY 04/02/19 04/02/19 History Cholecalciferol [Vitamin D3 (25 1,000 unit PO DAILY 04/02/19 04/02/19 History Mcg = 1000 Iu)] Enalapril/Hydrochlorothiazide 1 tab PO DAILY 04/02/19 04/02/19 History [Enalapril-Hctz 10-25 mg Tablet] Insulin Degludec [Tresiba 40 units SQ DAILY 04/02/19 04/02/19 History Flextouch U-100] metFORMIN HCL ER [Glucophage Xr] 500 mg PO DAILY 04/02/19 04/02/19 History traMADol HCL [Ultram] 50 mg PO Q6HR PRN 04/02/19 04/02/19 History Allergies Allergy/AdvReac Type Severity Reaction Status Date / Time Sulfa (Sulfonamide Allergy Severe Anaphylaxis Verified 04/02/19 18:32 Antibiotics) Physical Exam Vitals: Vital Signs Temp Pulse Pulse Resp BP BP Pulse Ox 04/03/19 12:00 99.1 F 97 22 143/65 96 04/03/19 08:15 98.3 F 95 24 140/65 98 04/03/19 04:00 99.2 F 98 28 H 133/67 95 04/03/19 00:00 98.6 F 101 H 30 H 126/71 98 04/02/19 22:03 97.3 F L 95 22 132/85 99 04/02/19 20:31 98.5 F 04/02/19 20:24 93 20 113/77 99 04/02/19 20:10 98.6 F 101 H 30 H 126/71 98 04/02/19 19:15 97.0 F L 98 16 102/78 98 04/02/19 19:00 96.7 F L 99 20 118/84 99 04/02/19 18:49 96.3 F L 98 20 124/78 97 04/02/19 18:37 96.0 F L 101 H 22 169/90 98 04/02/19 18:25 95.6 F L 103 H 22 97 04/02/19 18:15 95.2 F L 98 22 147/93 95 04/02/19 18:01 95.0 F L 102 H 22 127/98 93 L 04/02/19 17:47 94.6 F L 103 H 22 135/77 95 04/02/19 17:33 94.3 F L 04/02/19 17:21 93.9 F L 106 H 22 152/116 96 04/02/19 17:01 93.4 F L 135/86 97 04/02/19 16:58 93.3 F L 109 H 32 H 158/95 94 L 04/02/19 16:36 104 H 24 90 L Intake and Output 04/03/19 04/03/19 04/03/19 06:59 14:59 22:59 Intake Total 350 Output Total 625 0 150 Balance -625 350 -150 Intake: Intake, IV Titration 350 Amount Clindamycin 600 mg In 50 Dextrose 5% in Water 50 ml @ 50 mls/hr IVPB Q8HR YUDELKA Rx#:[id number] Dextrose 5%-0.45% NaCl 1, 250 000 ml @ 50 mls/hr IV . Q20H YUDELKA Rx#:[id number] cefTRIAXone 1 gm In 50 Sodium Chloride 0.9% 50 ml @ 100 mls/hr IVPB Q24HR YUDELKA Rx#:[id number] Output: Urine 625 150 Stool 0 Other: Voiding Method Indwelling Catheter Indwelling Catheter Gen. appearance the patient is calm comfortable likely distress. The patient is alert and oriented 2-3. Head exam was generally normal. There was no scleral icterus or corneal arcus. Mucous membranes were moist. Neck was supple and without jugular venous distension, thyromegaly, or carotid bruits. Carotids were easily palpable bilaterally. There was no adenopathy. Lungs sounds are diminished and there are some crackles in the right side compared to left. Cardiac exam revealed the PMI to be normally situated and sized. The rhythm was regular and no extrasystoles were noted during several minutes of auscultation. The first and second heart sounds were normal and physiologic splitting of the second heart sound was noted. There were no murmurs, rubs, clicks, or gallops. Abdominal exam revealed normal bowel sounds. The abdomen was soft, non-tender, and without masses, organomegaly, or appreciable enlargement of the abdominal aorta. Examination of the extremities revealed easily palpable radial, femoral and pedal pulses. There was no cyanosis, clubbing or edema. Examination of the skin revealed no evidence of significant rashes, suspicious appearing nevi or other concerning lesions. Neurologically the patient has no focal neurological deficit. There is some altered mentation for now. Pupils are equal and reactive to light. No facial asymmetry. Results - Laboratory Findings CBC and BMP: 04/03/19 07:14 04/03/19 07:14 PT/INR, D-dimer PT 10.3 sec (9.0-12.0) 04/02/19 16:45 INR 1.0 (<1.2) 04/02/19 16:45 Abnormal lab findings: Abnormal Labs 04/02/19 04/02/19 04/02/19 16:37 16:45 16:45 WBC 15.4 H Hgb Neutrophils # 13.9 H Lymphocytes # 0.7 L Monocytes # Sodium 132 L BUN 31 H Creatinine Glucose 169 H POC Glucose (mg/dL) 137 H AST 65 H Troponin I Total Protein Albumin Urine Appearance Urine Protein Ur Leukocyte Esterase Urine WBC Urine WBC Clumps Urine Bacteria Urine Mucus 04/02/19 04/02/19 04/02/19 16:45 17:34 17:51 WBC Hgb Neutrophils # Lymphocytes # Monocytes # Sodium BUN Creatinine Glucose POC Glucose (mg/dL) 101 H 68 L AST Troponin I Total Protein Albumin Urine Appearance Cloudy H Urine Protein 1+ H Ur Leukocyte Esterase Large H Urine WBC 30 H Urine WBC Clumps Few H Urine Bacteria Rare H Urine Mucus Rare H 04/02/19 04/02/19 04/02/19 18:15 18:32 18:47 WBC Hgb Neutrophils # Lymphocytes # Monocytes # Sodium BUN Creatinine Glucose POC Glucose (mg/dL) 207 H 140 H 115 H AST Troponin I Total Protein Albumin Urine Appearance Urine Protein Ur Leukocyte Esterase Urine WBC Urine WBC Clumps Urine Bacteria Urine Mucus 04/02/19 04/02/19 04/03/19 20:39 22:07 00:07 WBC Hgb Neutrophils # Lymphocytes # Monocytes # Sodium BUN Creatinine Glucose POC Glucose (mg/dL) 61 L 58 L 55 L AST Troponin I Total Protein Albumin Urine Appearance Urine Protein Ur Leukocyte Esterase Urine WBC Urine WBC Clumps Urine Bacteria Urine Mucus 04/03/19 04/03/19 04/03/19 07:14 07:14 07:14 WBC 22.1 H Hgb 11.2 L Neutrophils # 19.9 H Lymphocytes # 0.9 L Monocytes # 1.1 H Sodium 133 L BUN 37 H Creatinine 1.21 H Glucose POC Glucose (mg/dL) AST 133 H Troponin I 0.047 H* Total Protein 6.1 L Albumin 3.2 L Urine Appearance Urine Protein Ur Leukocyte Esterase Urine WBC Urine WBC Clumps Urine Bacteria Urine Mucus 04/03/19 09:19 WBC Hgb Neutrophils # Lymphocytes # Monocytes # Sodium BUN Creatinine Glucose POC Glucose (mg/dL) 135 H AST Troponin I Total Protein Albumin Urine Appearance Urine Protein Ur Leukocyte Esterase Urine WBC Urine WBC Clumps Urine Bacteria Urine Mucus - Diagnostic Findings Chest x-ray: image reviewed Assessment and Plan Plan: 1 right lung pneumonia, involving the right upper lobe and the patient has a dense airspace disease and currently on accommodation Rocephin and Zithromax and clindamycin. The patient is an acute hypoxic respiratory failure and cognition on 2 L of oxygen by nasal cannula. 2 leukocytosis secondary to above 3 altered mentation secondary to above 4 hypoglycemia maintained on a combination of Tresiba and metformin outpatient basis and the patient was treated with D50 and currently she is on a D5 half- normal infusion. 5diabetes mellitus 6 colon cancer with a previous colectomy 7 hypertension 8 hyperlipidemia 9 troponin leak 10 carotid artery disease with a previous right carotid endarterectomy Plan Obtain sputum Gram stain and culture. Obtain blood culture. Continue antibiotic coverage. Repeat chest x-ray with the next 24 hours. Monitor white count. Monitor mental status. Cardiology evaluation. Echocardiogram. We'll continue to follow.
[2019-04-03 19:11] LABS: Glucose,Whole Blood 194 mg/dL (75-99)
--- NOTE | 2019-04-03 20:05 | ECHOF ---
Referral Reason:Rule out heart disease MEASUREMENTS -------- HEIGHT: 165.1 cm WEIGHT: 79.4 kg BP: 133/67 RVIDd: 4.1 cm (< 3.3) IVSd: 1.4 cm (0.6 - 1.1) LVIDd: 3.2 cm (3.9 - 5.3) LVPWd: 1.1 cm (0.6 - 1.1) IVSs: 1.6 cm LVIDs: 2.0 cm LVPWs: 1.4 cm Ao Diam: 2.6 cm (2.0 - 3.7) AV Cusp: 1.1 cm (1.5 - 2.6) LA Diam: 4.6 cm (2.7 - 3.8) MV E Tavo: 0.53 m/s MV DecT: 340 ms MV A Tavo: 1.13 m/s MV E/A Ratio: 0.47 AV maxP.47 mmHg AV meanP.84 mmHg RAP: 5.00 mmHg RVSP: 20.15 mmHg %FS: 25.82 % EDV(Teich): 196.18 ml EF(Teich): 49.84 % ESV(Teich): 98.41 ml IVSd: 1.37 cm (0.6 - 1.1) IVSs: 1.68 cm LVIDd: 6.23 cm (3.9 - 5.3) LVIDs: 4.62 cm LVPWd: 1.06 cm (0.6 - 1.1) LVPWs: 1.54 cm SV(Teich): 97.77 ml FINDINGS -------- Sinus rhythm. This was a technically difficult study with suboptimal views. The left ventricular size is normal. There is moderate concentric left ventricular hypertrophy. O verall left ventricular systolic function is low-normal with, an EF between 50 - 55 %. The right ventricle is severely enlarged. Left atrium is mildly dilated by volume. The right atrium was not well visualized. Lumason used Interatrial and interventricular septum intact. There is mild aortic stenosis present. Peak/mean gradient across the valve is 20.47mmHg / 13.84mmHg . Mild mitral regurgitation is present. Mild tricuspid regurgitation present. There is no evidence of pulmonary hypertension. The right v entricular systolic pressure, as measured by Doppler, is 20.15mmHg. The pulmonic valve is normal. The aortic root size is normal. IVC not visualized Echo free space may represent effusion or a pericardial fat pad. CONCLUSIONS -------- 1. Sinus rhythm. 2. This was a technically difficult study with suboptimal views. 3. The left ventricular size is normal. 4. There is moderate concentric left ventricular hypertrophy. 5. Overall left ventricular systolic function is low-normal with, an EF between 50 - 55 %. 6. The right ventricle is severely enlarged. 7. Left atrium is mildly dilated by volume. 8. The right atrium was not well visualized. 9. Lumason used 10. Interatrial and interventricular septum intact. 11. There is mild aortic stenosis present. 12. Peak/mean gradient across the valve is 20.47mmHg / 13.84mmHg. 13. Mild mitral regurgitation is present. 14. Mild tricuspid regurgitation present. 15. There is no evidence of pulmonary hypertension. 16. The right ventricular systolic pressure, as measured by Doppler, is 20.15mmHg. 17. The pulmonic valve is normal. 18. The aortic root size is normal. 19. IVC not visualized 20. Echo free space may represent effusion or a pericardial fat pad. RFP WRITER: Shiela Parnell RDCS
[2019-04-03 20:50] LABS: Glucose,Whole Blood 169 mg/dL (75-99)
[2019-04-03] MEDS: FAMOTIDINE 20 MG TAB PO SCH (21:43)
[2019-04-03 21:53] LABS: Glucose,Whole Blood 178 mg/dL (75-99)
[2019-04-03 23:30] LABS: Glucose,Whole Blood 159 mg/dL (75-99)
[2019-04-04 01:07] LABS: Glucose,Whole Blood 126 mg/dL (75-99)
[2019-04-04 03:17] LABS: Glucose,Whole Blood 118 mg/dL (75-99)
[2019-04-04] MEDS: DEXTROSE 5%-0.45% NACL 1,000 ML IV SCH ×2 (03:44→23:27)
[2019-04-04 04:57] LABS: Glucose,Whole Blood 97 mg/dL (75-99)
[2019-04-04 06:11] LABS: Basophils % (A) 0 %; Eosinophils % (A) 0 %; HCT 30.8 % (34.0-46.0); HGB 9.8 gm/dL (11.4-16.0); Lymphocytes # (A) 1.3 k/uL (1.0-4.8); Lymphocytes % (A) 8 %; MCH 28.1 pg (25.0-35.0); MCHC 31.9 g/dL (31.0-37.0); MCV 88.1 fL (80.0-100.0); Mean Platelet Volume 6.7; Monocytes # (A) 1.1 k/uL (0-1.0); Monocytes % (A) 7 %; Neutrophils # (A) 12.8 k/uL (1.3-7.7); Neutrophils % (A) 83 %; Platelet Count 319 k/uL (150-450); RDW 13.9 % (11.5-15.5); WBC 15.5 k/uL (3.8-10.6)
[2019-04-04 06:20] LABS: Potassium 3.7 mmol/L (3.5-5.1)
[2019-04-04 06:52] LABS: Glucose,Whole Blood 115 mg/dL (75-99)
[2019-04-04] MEDS: INSULIN ASPART (NovoLOG) 100 UNIT/ML VIAL SQ SCH ×4 (06:52→20:57)
[2019-04-04] MEDS: AZITHROMYCIN 500 MG TAB PO SCH (08:37)
[2019-04-04] MEDS: METOPROLOL SUCCINATE (ER) 25 MG TAB.ER.24H PO SCH (08:37)
[2019-04-04] MEDS: ASPIRIN 81 MG PO SCH (08:37)
[2019-04-04] MEDS: HEPARIN SODIUM,PORCINE 5,000 UNIT/ML 1 ML VIAL SQ SCH ×2 (08:38→20:47)
[2019-04-04] MEDS: FAMOTIDINE 20 MG TAB PO SCH (08:38)
[2019-04-04 10:21] LABS: Glucose,Whole Blood 342 mg/dL (75-99)
[2019-04-04 12:01] LABS: Glucose,Whole Blood 210 mg/dL (75-99)
[2019-04-04] MEDS: CLINDAMYCIN 600 MG in DEXTROSE 5% IN WATER 50 ML IVPB SCH ×2 (12:11)
[2019-04-04] MEDS: traMADol 50 MG TAB PO PRN (12:16)
[2019-04-04] MEDS ORDERED: CLINDAMYCIN 150 MG CAP PO SCH (14:00)
[2019-04-04 14:27] LABS: Glucose,Whole Blood 273 mg/dL (75-99)
[2019-04-04] MEDS ORDERED: MORPHINE SULFATE 2 MG/ML SYRINGE IVP PRN (14:38)
--- NOTE | 2019-04-04 14:42 | P.PN ---
Subjective This is a pleasant 53 years old female with past medical history of diabetes mellitus, hyperlipidemia, hypertension, rheumatoid arthritis, colon cancer. Presents with altered mental status associated with hyperglycemia, patient is poor historian. Son is at bedside who lives with her. Patient has been feeling sick for the last couple days with a breathing problems And coughing.. Patient has been not waking up the whole morning yesterday afternoon when this came back. So the [place] to the emergency room. On admission her blood sugar w as in the 20s and she received D50 his injections and placed on D5 fluids. Her sugars start correcting to normal levels and patient started waking up. This morning patient is more awake but looks tired and elevated disoriented. She knows where she is in the hospital but she cannot give much information. As per son patient was started on new dose insulin last week by her PCP Dr. Waters. On admission also patient was tachypneic and chest x-ray showing right pneumonia. Patient is a known diabetic was on metformin 500 mg daily and insulin decludec 40 units daily On admission patient is been afebrile. Blood pressure dropped from 158/95 down to 1 or 2/78. Currently her blood pressure 133/67. She is saturating 95% and 2 L nasal cannula and respiratory 28/m. She is mildly tachycardic around 100. Labs reviewed showing WBC of 15.4 K. Risks of CBC is unremarkable. INR is within normal. Sugar was troponin down to 55 while on therapy, currently her sugar is 92. AST mildly elevated at 65, rest of liver enzymes are within normal. Troponin is negative less than 0.012. EKG showing sinus tachycardia at 105 with QTC 467, no significant ST-T changes.brain CT: No acute event. Chest x-ray: Prominent pulmonary consolidation on the right lung reviewed urinalysis shows cloudy and showing large leukocyte esterase On admission patient been resuscitated with IV fluids and place it on D5 fluids. Also she was started on antibiotic Zithromax and ceftriaxone. 04/04/2019 Today patient is breathing better with less dyspnea and no chest pain. His scalp is improving. She is awake and alert but she is in distress because of significant pain in her left knee, Then he does not look swollen or tender or red. As per patient and son at bedside patient has degenerative joint disease and usually have the frequent pain in her left knee. He agrees for lidocaine patch and increase in her pain medication. Her going to check left knee x-rays. Patient is hemodynamically stable and she is saturating 91% on 2 L. WBC is coming down from 22.1 down to 15.5 K. Hemoglobin 9.8 today. Creatinine 1.2. Sugar is controlled. Urine culture show no growth. She is currently on clindamycin, cefdinir and Zithromax. Cardiology and pulmonary input is appreciated. CONSTITUTIONAL: No fever, no malaise, no fatigue. HEENT: No recent visual problems or hearing problems. Denied any sore throat. CARDIOVASCULAR: No orthopnea, PND, no palpitations, no syncope. PULMONARY: no hemoptysis. GASTROINTESTINAL: No diarrhea, no nausea, no vomiting, no abdominal pain. Normoactive bowel sounds. NEUROLOGICAL: No headaches, no weakness, no numbness. HEMATOLOGICAL: Denies any bleeding or petechiae. GENITOURINARY: Denies any burning micturition, frequency, or urgency. ENDOCRINE: Denies any polyuria or polydipsia. Medication: Tylenol 650 mg, aspirin 81 mg, Zithromax 500 mg, Omnicef 300 mg, clindamycin 300 mg, dextrose half-normal saline at 50 L/h, Pepcid 20 mg, heparin 5000 units, NovoLog insulin sliding scale, metoprolol 25 mg, morphine sulfate 2 mg, Ultram 50 mg, Tigan 300 mg. Objective - Vital Signs Vital signs: Vital Signs Temp 98.2 F 04/04/19 12:00 Pulse 99 04/04/19 12:00 Resp 16 04/04/19 12:00 BP 167/81 04/04/19 12:00 Pulse Ox 91 L 04/04/19 12:00 Intake & Output 04/03/19 04/04/19 04/04/19 18:59 06:59 18:59 Intake Total 350 236 360 Output Total 621 356 6507 Balance 200 -114 -1040 Weight 79.3 kg Intake: Intake, IV Titration 350 Amount Clindamycin 600 mg In 50 Dextrose 5% in Water 50 ml @ 50 mls/hr IVPB Q8HR [facility] Rx#:[id number] Dextrose 5%-0.45% NaCl 1, 250 000 ml @ 50 mls/hr IV . Q20H [facility] Rx#:[id number] cefTRIAXone 1 gm In 50 Sodium Chloride 0.9% 50 ml @ 100 mls/hr IVPB Q24HR [facility] Rx#:[id number] Oral 236 360 Output: Urine 982 910 0966 Stool 0 Other: Voiding Method Indwelling Catheter Indwelling Catheter Indwelling Catheter # Bowel Movements 1 - Exam -GENERAL: The patient is alert and oriented x2-3, not in any acute distress. Obese HEENT: Pupils are round and equally reacting to light. EOMI. No scleral icterus. No conjunctival pallor. Normocephalic, atraumatic. No pharyngeal erythema. No th yromegaly. CARDIOVASCULAR: S1 and S2 present. No murmurs, rubs, or gallops. -PULMONARY: Chest is clear to auscultation, no wheezing or crackles. The. Right side harsh breath sounds ABDOMEN: Soft, nontender, nondistended, normoactive bowel sounds. No palpable organomegaly. MUSCULOSKELETAL: No joint swelling or deformity. EXTREMITIES: No cyanosis, clubbing, or pedal edema. Rheumatoid arthritis fingers, chronic- NEUROLOGICAL: Gross neurological examination did not reveal any focal deficits. SKIN: No rashes. - Labs CBC & Chem 7: 04/04/19 05:31 04/04/19 05:31 Labs: Abnormal Lab Results - Last 24 Hours (Table) 04/03/19 04/03/19 04/03/19 Range/Units 16:58 19:09 20:49 WBC (3.8-10.6) k/uL RBC (3.80-5.40) m/uL Hgb (11.4-16.0) gm/dL Hct (34.0-46.0) % Neutrophils # (1.3-7.7) k/uL Monocytes # (0-1.0) k/uL Sodium (137-145) mmol/L BUN (7-17) mg/dL Creatinine (0.52-1.04) mg/dL Glucose (74-99) mg/dL POC Glucose (mg/dL) 125 H 194 H 169 H (75-99) mg/dL 04/03/19 04/03/19 04/04/19 Range/Units 21:42 23:26 01:03 WBC (3.8-10.6) k/uL RBC (3.80-5.40) m/uL Hgb (11.4-16.0) gm/dL Hct (34.0-46.0) % Neutrophils # (1.3-7.7) k/uL Monocytes # (0-1.0) k/uL Sodium (137-145) mmol/L BUN (7-17) mg/dL Creatinine (0.52-1.04) mg/dL Glucose (74-99) mg/dL POC Glucose (mg/dL) 178 H 159 H 126 H (75-99) mg/dL 04/04/19 04/04/19 04/04/19 Range/Units 03:15 05:31 05:31 WBC 15.5 H (3.8-10.6) k/uL RBC 3.50 L (3.80-5.40) m/uL Hgb 9.8 L (11.4-16.0) gm/dL Hct 30.8 L (34.0-46.0) % Neutrophils # 12.8 H (1.3-7.7) k/uL Monocytes # 1.1 H (0-1.0) k/uL Sodium 133 L (137-145) mmol/L BUN 39 H (7-17) mg/dL Creatinine 1.27 H (0.52-1.04) mg/dL Glucose 116 H (74-99) mg/dL POC Glucose (mg/dL) 118 H (75-99) mg/dL 04/04/19 04/04/19 04/04/19 Range/Units 06:48 09:52 12:00 WBC (3.8-10.6) k/uL RBC (3.80-5.40) m/uL Hgb (11.4-16.0) gm/dL Hct (34.0-46.0) % Neutrophils # (1.3-7.7) k/uL Monocytes # (0-1.0) k/uL Sodium (137-145) mmol/L BUN (7-17) mg/dL Creatinine (0.52-1.04) mg/dL Glucose (74-99) mg/dL POC Glucose (mg/dL) 115 H 342 H 210 H (75-99) mg/dL 04/04/19 Range/Units 14:26 WBC (3.8-10.6) k/uL RBC (3.80-5.40) m/uL Hgb (11.4-16.0) gm/dL Hct (34.0-46.0) % Neutrophils # (1.3-7.7) k/uL Monocytes # (0-1.0) k/uL Sodium (137-145) mmol/L BUN (7-17) mg/dL Creatinine (0.52-1.04) mg/dL Glucose (74-99) mg/dL POC Glucose (mg/dL) 273 H (75-99) mg/dL Microbiology - Last 24 Hours (Table) 04/03/19 09:12 Urine Culture - Final Urine,Catheterized 04/02/19 20:30 Blood Culture - Preliminary Blood No Growth after 24 hours Assessment and Plan Assessment: Acute community-acquired right pneumonia Possible UTI, less likely History of diabetes mellitus with hyperglycemia Hyponatremia Essential hypertension Hyperlipidemia History of colon cancer, about 10 years ago. therapy currently history of rheumatoid arthritis Plan: This is a pleasant 83 years old female who presents with pneumonia and hypoglycemia. Continue with glucose monitoring and management and try to keep it in the normal range. Continue with insulin sliding scale, give glucagon when necessary for hypoglycemia. Continue with antibiotics and IV fluids. Call pulmonary consult. Check influenza Labs and medication were reviewed.. Continue same treatment. Continue with symptomatic treatment. Resume home medication. Monitor lytes and vitals. DVT and GI prophylaxis. Further recommendations of the clinical course of the patient DVT prophylaxis: Subcutaneous heparin GI Prophylaxis: Pepcid PT/OT: Pending Prognosis is guarded
--- NOTE | 2019-04-04 14:43 | P.PN ---
Subjective Progress Note Date: 04/04/19 Principal diagnosis: Right lung pneumonia 53-year-old female patient presented to the emergency department yesterday because of altered mentation. The patient is a poor historian. Information was obtained by the son was at the bedside. The patient was feeling sick for the past couple of days and she was having increased dyspnea cough chest tightness and congestion. She progressively also developed some altered mentation. She was not walking and she was feeling extremely weak. For that reason she was brought into the ED. Blood sugar initially was in the low 20s. She received D50 injection and she was started on D5 infusion. Her blood sugars gradually improved following that. She is known to be diabetic and the patient has been taking metformin and trasiba for blood sugar control now patient bases. Chest x-ray was also done and the patient was found to have an extensive right lung consolidation consistent with pneumonia. Her white cell count was 22. The c reatinine was at 1.2. There was a limited troponin leak with troponin level of 0.04. Influenza screen was negative. The patient's the patient's lactic acid level was at 1.9. The patient was started on Rocephin and Zithromax and she was admitted to the telemetry unit and a cardiology consultation and a pulmonary consultation was requested. The CT of the brain showed no acute process. EKG showed sinus tachycardia. No ST segment elevation or depression. No signs of an acute myocardial injury. Heart rate was 105. Currently the patient is on a D5 half-normal saline at the rate of 50 mL an hour. He is on heparin subcu for DVT prophylaxis. Outpatient medications have been resumed. The current antibiotic coverage includes a combination of Zithromax and ceftriaxone and clindamycin. On 04/04/2019 patient seen in follow-up on selective care unit. Patient a little bit more awake today, she denies any worsening dyspnea, lung sounds are clear, she is on 2 L of oxygen with pulse ox of 99%, patient did get up in the chair today, set up for a few hours. He tolerated activity very well. Faint resting in bed, denies any acute distress, no fever or chills. Urine and blood cultures show no growth so far, she was unable to produce sputum specimen for culture. antibiotic coverage includes clindamycin, Cefdinir, Zithromax. Today's labs have been reviewed, showing white blood cell count of 15.5, hemoglobin of 9.8, sodium of 133, potassium is 3.7, chloride is 102, CO2 is 25, BUN of 39, creatinine is 1.7. Lung sounds are essentially clear. Objective - Vital Signs Vital signs: Vital Signs Temp 98.2 F 04/04/19 12:00 Pulse 99 04/04/19 12:00 Resp 16 04/04/19 12:00 BP 167/81 04/04/19 12:00 Pulse Ox 91 L 04/04/19 12:00 Intake & Output 04/03/19 04/04/19 04/04/19 18:59 06:59 18:59 Intake Total 350 236 360 Output Total 011 507 9840 Balance 200 -114 -1040 Weight 79.3 kg Intake: Intake, IV Titration 350 Amount Clindamycin 600 mg In 50 Dextrose 5% in Water 50 ml @ 50 mls/hr IVPB Q8HR [facility] Rx#:[id number] Dextrose 5%-0.45% NaCl 1, 250 000 ml @ 50 mls/hr IV . Q20H [facility] Rx#:[id number] cefTRIAXone 1 gm In 50 Sodium Chloride 0.9% 50 ml @ 100 mls/hr IVPB Q24HR [facility] Rx#:[id number] Oral 236 360 Output: Urine 238 706 2427 Stool 0 Other: Voiding Method Indwelling Catheter Indwelling Catheter Indwelling Catheter # Bowel Movements 1 - Exam GENERAL EXAM: Alert, pleasant, 83-year-old white female comfortable in no apparent distress. HEAD: Normocephalic/atraumatic. EYES: Normal reaction of pupils, equal size. Conjunctiva pink, sclera white. NOSE: Clear with pink turbinates. THROAT: No erythema or exudates. NECK: No masses, no JVD, no thyroid enlargement, no adenopathy. CHEST: No chest wall deformity. Symmetrical expansion. LUNGS: Equal air entry with no crackles, wheeze, rhonchi or dullness. CVS: Regular rate and rhythm, normal S1 and S2, no gallops, no murmurs, no rubs ABDOMEN: Soft, nontender. No hepatosplenomegaly, normal bowel sounds, no guarding or rigidity. EXTREMITIES: No clubbing, no edema, no cyanosis, 2+ pulses and upper and lower extremities. MUSCULOSKELETAL: Muscle strength and tone normal. SPINE: No scoliosis or deformity SKIN: No rashes CENTRAL NERVOUS SYSTEM: Alert and oriented -3. No focal deficits, tone is normal in all 4 extremities. PSYCHIATRIC: Alert and oriented -3. Appropriate affect. Intact judgment and insight. - Labs CBC & Chem 7: 04/04/19 05:31 04/04/19 05:31 Labs: Abnormal Lab Results - Last 24 Hours (Table) 04/03/19 04/03/19 04/03/19 Range/Units 16:58 19:09 20:49 WBC (3.8-10.6) k/uL RBC (3.80-5.40) m/uL Hgb (11.4-16.0) gm/dL Hct (34.0-46.0) % Neutrophils # (1.3-7.7) k/uL Monocytes # (0-1.0) k/uL Sodium (137-145) mmol/L BUN (7-17) mg/dL Creatinine (0.52-1.04) mg/dL Glucose (74-99) mg/dL POC Glucose (mg/dL) 125 H 194 H 169 H (75-99) mg/dL 04/03/19 04/03/19 04/04/19 Range/Units 21:42 23:26 01:03 WBC (3.8-10.6) k/uL RBC (3.80-5.40) m/uL Hgb (11.4-16.0) gm/dL Hct (34.0-46.0) % Neutrophils # (1.3-7.7) k/uL Monocytes # (0-1.0) k/uL Sodium (137-145) mmol/L BUN (7-17) mg/dL Creatinine (0.52-1.04) mg/dL Glucose (74-99) mg/dL POC Glucose (mg/dL) 178 H 159 H 126 H (75-99) mg/dL 04/04/19 04/04/19 04/04/19 Range/Units 03:15 05:31 05:31 WBC 15.5 H (3.8-10.6) k/uL RBC 3.50 L (3.80-5.40) m/uL Hgb 9.8 L (11.4-16.0) gm/dL Hct 30.8 L (34.0-46.0) % Neutrophils # 12.8 H (1.3-7.7) k/uL Monocytes # 1.1 H (0-1.0) k/uL Sodium 133 L (137-145) mmol/L BUN 39 H (7-17) mg/dL Creatinine 1.27 H (0.52-1.04) mg/dL Glucose 116 H (74-99) mg/dL POC Glucose (mg/dL) 118 H (75-99) mg/dL 04/04/19 04/04/19 04/04/19 Range/Units 06:48 09:52 12:00 WBC (3.8-10.6) k/uL RBC (3.80-5.40) m/uL Hgb (11.4-16.0) gm/dL Hct (34.0-46.0) % Neutrophils # (1.3-7.7) k/uL Monocytes # (0-1.0) k/uL Sodium (137-145) mmol/L BUN (7-17) mg/dL Creatinine (0.52-1.04) mg/dL Glucose (74-99) mg/dL POC Glucose (mg/dL) 115 H 342 H 210 H (75-99) mg/dL 04/04/19 Range/Units 14:26 WBC (3.8-10.6) k/uL RBC (3.80-5.40) m/uL Hgb (11.4-16.0) gm/dL Hct (34.0-46.0) % Neutrophils # (1.3-7.7) k/uL Monocytes # (0-1.0) k/uL Sodium (137-145) mmol/L BUN (7-17) mg/dL Creatinine (0.52-1.04) mg/dL Glucose (74-99) mg/dL POC Glucose (mg/dL) 273 H (75-99) mg/dL Microbiology - Last 24 Hours (Table) 04/03/19 09:12 Urine Culture - Final Urine,Catheterized 04/02/19 20:30 Blood Culture - Preliminary Blood No Growth after 24 hours Assessment and Plan Plan: 1 right lung pneumonia, involving the right upper lobe and the patient has a dense airspace disease and currently on accommodation Rocephin and Zithromax and clindamycin. The patient is an acute hypoxic respiratory failure and cognition on 2 L of oxygen by nasal cannula. 2 leukocytosis secondary to above 3 altered mentation secondary to above 4 hypoglycemia maintained on a combination of Tresiba and metformin outpatient basis and the patient was treated with D50 and currently she is on a D5 half- normal infusion. 5diabetes mellitus 6 colon cancer with a previous colectomy 7 hypertension 8 hyperlipidemia 9 troponin leak 10 carotid artery disease with a previous right carotid endarterectomy Plan: Continue current antibiotic coverage, the patient is improving, feeling better, more awake, tolerating activity, maintaining good oxygenation, unable to produce a sputum specimen for culture. Repeat chest x-ray in the morning. No fever or chills, no chest pain, no cough, no congestion. Follow-up chest x-ray in the morning. Repeat lab work in the morning. Current medical treatment. I performed a history & physical examination of the patient and discussed their management with my nurse practitioner, Nori Sahu. I reviewed the nurse practitioner's note and agree with the documented findings and plan of care. Lung sounds are positive for clear breath sounds. The findings and the impression was discussed with the patient. I attest to the documentation by the nurse practitioner. Time with Patient: Less than 30
--- NOTE | 2019-04-04 15:52 | XR ---
EXAMINATION TYPE: XR knee 4V LT DATE OF EXAM: 04/04/2019 CLINICAL HISTORY: Left knee pain. TECHNIQUE: Three views of the left knee are obtained. Fourth sunrise view is acquired. COMPARISON: None. FINDINGS: Genu varum positioning is seen. Osseous structures are demineralized. There is no acute fr acture/dislocation evident in left knee. Moderate to severe narrowing with moderate spurring medial t ibiofemoral compartment is seen. There is moderate narrowing with severe spurring patellofemoral com partment. There is mild narrowing with moderate to severe spurring lateral tibiofemoral compartment. Patellar articulation is within normal limits on sunrise view. Increased density suprapatellar bursa is consistent with moderate to large joint effusion. Posterior vascular calcification is present. IMPRESSION: As above.
[2019-04-04 16:52] LABS: Glucose,Whole Blood 292 mg/dL (75-99)
[2019-04-04] MEDS: LIDOCAINE 5% PATCH TOPICAL SCH ×2 (16:55→20:49)
[2019-04-04] MEDS ORDERED: LORazepam 2 MG/ML INJ IV STA (20:39)
[2019-04-04] MEDS: CLINDAMYCIN 150 MG CAP PO SCH ×2 (20:47→23:27)
[2019-04-04 21:06] LABS: Glucose,Whole Blood 135 mg/dL (75-99)
[2019-04-05 02:48] LABS: Glucose,Whole Blood 144 mg/dL (75-99)
[2019-04-05] MEDS: CLINDAMYCIN 150 MG CAP PO SCH ×3 (03:14→20:34)
[2019-04-05 07:46] LABS: Glucose,Whole Blood 120 mg/dL (75-99)
[2019-04-05] MEDS: INSULIN ASPART (NovoLOG) 100 UNIT/ML VIAL SQ SCH ×4 (07:48→20:47)
[2019-04-05 08:28] VITALS: RESP 16
[2019-04-05] MEDS ORDERED: CEFDINIR 300 MG CAP PO SCH (09:00)
[2019-04-05] MEDS: METOPROLOL SUCCINATE (ER) 25 MG TAB.ER.24H PO SCH (09:04)
[2019-04-05] MEDS: ASPIRIN 81 MG PO SCH (09:04)
[2019-04-05] MEDS: AZITHROMYCIN 500 MG TAB PO SCH (09:04)
[2019-04-05] MEDS: FAMOTIDINE 20 MG TAB PO SCH (09:05)
[2019-04-05] MEDS: HEPARIN SODIUM,PORCINE 5,000 UNIT/ML 1 ML VIAL SQ SCH ×2 (09:05→20:35)
[2019-04-05 09:30] LABS: Basophils % (A) 0 %; Eosinophils % (A) 0 %; HCT 30.6 % (34.0-46.0); HGB 9.6 gm/dL (11.4-16.0); Lymphocytes # (A) 1.1 k/uL (1.0-4.8); Lymphocytes % (A) 9 %; MCH 27.8 pg (25.0-35.0); MCHC 31.3 g/dL (31.0-37.0); MCV 88.9 fL (80.0-100.0); Mean Platelet Volume 6.6; Monocytes # (A) 0.8 k/uL (0-1.0); Monocytes % (A) 6 %; Neutrophils # (A) 10.9 k/uL (1.3-7.7); Neutrophils % (A) 83 %; Platelet Count 306 k/uL (150-450); RBC 3.44 m/uL (3.80-5.40); RDW 13.7 % (11.5-15.5); WBC 13.2 k/uL (3.8-10.6)
[2019-04-05 09:44] LABS: Calcium 9.3 mg/dL (8.4-10.2); Potassium 3.7 mmol/L (3.5-5.1)
[2019-04-05 11:37] LABS: Glucose,Whole Blood 248 mg/dL (75-99)
--- NOTE | 2019-04-05 12:42 | P.CNOR ---
<JamarantonioLubna Ahmet - Last Filed: 04/05/19 12:30> History of Present Illness - [facility] Consult date: 04/05/19 Requesting physician: Lang Milner Consult reason: joint pain (Left knee pain) History of present illness: The patient is an 83-year-old female who presented to the emergency department unresponsive due to a low blood sugar. She was found to have pneumonia as well. The patient was admitted to internal medicine for further evaluation. Orthopedics was consulted due to ongoing and severe left knee pain. The kyle rangel's family was at the bedside during evaluation and states that she has been complaining of knee pain for the last 30 years. She is known to have osteoarthritis is "[id number]" with her bilateral knees. The patient has not seen an orthopedic surgeon lately. The pain is minimal at the time of evaluation that can be severe at times. The pain also fluctuates on a day-to-day basis especially with weather changes according to the family. The nursing staff states that she will be going to skilled rehab hopefully today. She denies fever, chills, rigors, shortness of breath, chest pain, and abdominal pain today. No recent injury or falls according to the patient's family. Review of Systems Constitutional: Denies chills, Denies fatigue, Denies fever Cardiovascular: Denies chest pain, Denies shortness of breath Respiratory: Denies cough Gastrointestinal: Denies diarrhea, Denies nausea, Denies vomiting Musculoskeletal: left: knee pain, knee stiffness, knee swelling Past Medical History Past Medical History: Cancer, Diabetes Mellitus, Hyperlipidemia, Hypertension, Osteoarthritis (OA) Additional Past Medical History / Comment(s): colon cancer, cardiac murmur, diabetes, hypertension, hyperlipidemia, cardiac artery disease History of Any Multi-Drug Resistant Organisms: Unobtainable Past Surgical History: Unable to Obtain Additional Past Surgical History / Comment(s): Colectomy for colon cancer, RT carotid endartectomy Past Anesthesia/Blood Transfusion Reactions: No Reported Reaction Past Psychological History: Unable to Obtain Smoking Status: Former smoker Past Alcohol Use History: None Reported Past Drug Use History: None Reported Medications and Allergies Home Medications Medication Instructions Recorded Confirmed Type Atorvastatin [Lipitor] 40 mg PO DAILY 04/02/19 04/02/19 History Cholecalciferol [Vitamin D3 (25 1,000 unit PO DAILY 04/02/19 04/02/19 History Mcg = 1000 Iu)] Enalapril/Hydrochlorothiazide 1 tab PO DAILY 04/02/19 04/02/19 History [Enalapril-Hctz 10-25 mg Tablet] Insulin Degludec [Tresiba 40 units SQ DAILY 04/02/19 04/02/19 History Flextouch U-100] metFORMIN HCL ER [Glucophage Xr] 500 mg PO DAILY 04/02/19 04/02/19 History traMADol HCL [Ultram] 50 mg PO Q6HR PRN 04/02/19 04/02/19 History Allergies Allergy/AdvReac Type Severity Reaction Status Date / Time Sulfa (Sulfonamide Allergy Severe Anaphylaxis Verified 04/02/19 18:32 Antibiotics) Physical Examination The patient is an 83-year-old female who is in no acute distress. She is alert and oriented 1. The patient was examined while sitting up in bed eating lunch. Exam of the bilateral lower extremities reveal no obvious deformity or open wounds. There is no obvious swelling or erythema to the bilateral knees. There is pain to the medial and lateral joint lines of the left knee. Small effusion present. ACL, PCL, MCL, and LCL are intact. Unable to fully perform Larry's testing due to the patient's position. Bilateral calves are soft and nontender. Patient has good foot and ankle motion with dorsiflexion and plantarflexion without significant pain. Neurological and circulatory status is intact. Results - Labs Labs: Abnormal Lab Results - Last 24 Hours (Table) 04/04/19 04/04/19 04/04/19 Range/Units 14:26 16:47 20:48 WBC (3.8-10.6) k/uL RBC (3.80-5.40) m/uL Hgb (11.4-16.0) gm/dL Hct (34.0-46.0) % Neutrophils # (1.3-7.7) k/uL Sodium (137-145) mmol/L BUN (7-17) mg/dL Glucose (74-99) mg/dL POC Glucose (mg/dL) 273 H 292 H 135 H (75-99) mg/dL 04/05/19 04/05/19 04/05/19 Range/Units 02:46 07:45 08:57 WBC 13.2 H (3.8-10.6) k/uL RBC 3.44 L (3.80-5.40) m/uL Hgb 9.6 L (11.4-16.0) gm/dL Hct 30.6 L (34.0-46.0) % Neutrophils # 10.9 H (1.3-7.7) k/uL Sodium (137-145) mmol/L BUN (7-17) mg/dL Glucose (74-99) mg/dL POC Glucose (mg/dL) 144 H 120 H (75-99) mg/dL 04/05/19 04/05/19 Range/Units 08:57 11:36 WBC (3.8-10.6) k/uL RBC (3.80-5.40) m/uL Hgb (11.4-16.0) gm/dL Hct (34.0-46.0) % Neutrophils # (1.3-7.7) k/uL Sodium 135 L (137-145) mmol/L BUN 33 H (7-17) mg/dL Glucose 109 H (74-99) mg/dL POC Glucose (mg/dL) 248 H (75-99) mg/dL Microbiology - Last 24 Hours (Table) 04/02/19 20:30 Blood Culture - Preliminary Blood No Growth after 48 hours 04/03/19 09:12 Urine Culture - Final Urine,Catheterized H & H 04/02/19 04/03/19 04/04/19 Range/Units 16:45 07:14 05:31 Hgb 13.2 11.2 L 9.8 L (11.4-16.0) gm/dL Hct 39.7 34.0 30.8 L (34.0-46.0) % 04/05/19 Range/Units 08:57 Hgb 9.6 L (11.4-16.0) gm/dL Hct 30.6 L (34.0-46.0) % Coagulation 04/02/19 Range/Units 16:45 INR 1.0 (<1.2) Result Diagrams: 04/05/19 08:57 04/05/19 08:57 - Diagnostic results Knee x-ray: image reviewed (Three views of the left knee reveals advanced tricompartmental osteoarthritis. No acute fractures seen. ) Assessment and Plan (1) Left knee pain Current Visit: Yes Status: Acute Code(s): M25.562 - PAIN IN LEFT KNEE SNOMED Code(s): 71012782 (2) Tricompartment osteoarthritis of left knee Current Visit: Yes Status: Acute Code(s): M17.12 - UNILATERAL PRIMARY OSTEOARTHRITIS, LEFT KNEE SNOMED Code(s): 122523293 (3) Altered mental status Current Visit: Yes Status: Acute Code(s): R41.82 - ALTERED MENTAL STATUS, UNSPECIFIED SNOMED Code(s): 098297967 (4) Pneumonia Current Visit: Yes Status: Acute Code(s): J18.9 - PNEUMONIA, UNSPECIFIED ORGANISM SNOMED Code(s): 146545013 Plan: The clinical and x-ray findings were discussed with the patient and the patient's family at the bedside. The case was also discussed with Dr. Javad de luna. The patient appears to be comfortable at this time and is currently awaiting skilled rehab placement possibly today. Continue pain control and ambulation with assistance. The patient may follow-up in our office as an outpatient if knee pain returns for possible intra-articular joint injection if needed. The patient is orthopedically stable for discharge to skilled rehab and we will sign off at this time. <Darren Velazco - Last Filed: 04/05/19 13:35> Results - Labs Labs: Abnormal Lab Results - Last 24 Hours (Table) 04/04/19 04/04/19 04/04/19 Range/Units 14:26 16:47 20:48 WBC (3.8-10.6) k/uL RBC (3.80-5.40) m/uL Hgb (11.4-16.0) gm/dL Hct (34.0-46.0) % Neutrophils # (1.3-7.7) k/uL Sodium (137-145) mmol/L BUN (7-17) mg/dL Glucose (74-99) mg/dL POC Glucose (mg/dL) 273 H 292 H 135 H (75-99) mg/dL 04/05/19 04/05/19 04/05/19 Range/Units 02:46 07:45 08:57 WBC 13.2 H (3.8-10.6) k/uL RBC 3.44 L (3.80-5.40) m/uL Hgb 9.6 L (11.4-16.0) gm/dL Hct 30.6 L (34.0-46.0) % Neutrophils # 10.9 H (1.3-7.7) k/uL Sodium (137-145) mmol/L BUN (7-17) mg/dL Glucose (74-99) mg/dL POC Glucose (mg/dL) 144 H 120 H (75-99) mg/dL 04/05/19 04/05/19 Range/Units 08:57 11:36 WBC (3.8-10.6) k/uL RBC (3.80-5.40) m/uL Hgb (11.4-16.0) gm/dL Hct (34.0-46.0) % Neutrophils # (1.3-7.7) k/uL Sodium 135 L (137-145) mmol/L BUN 33 H (7-17) mg/dL Glucose 109 H (74-99) mg/dL POC Glucose (mg/dL) 248 H (75-99) mg/dL Microbiology - Last 24 Hours (Table) 04/02/19 20:30 Blood Culture - Preliminary Blood No Growth after 48 hours 04/03/19 09:12 Urine Culture - Final Urine,Catheterized H & H 04/02/19 04/03/19 04/04/19 Range/Units 16:45 07:14 05:31 Hgb 13.2 11.2 L 9.8 L (11.4-16.0) gm/dL Hct 39.7 34.0 30.8 L (34.0-46.0) % 04/05/19 Range/Units 08:57 Hgb 9.6 L (11.4-16.0) gm/dL Hct 30.6 L (34.0-46.0) % Coagulation 04/02/19 Range/Units 16:45 INR 1.0 (<1.2) Result Diagrams: 04/05/19 08:57 04/05/19 08:57 Assessment and Plan Plan: Discussed with MEGA Contreras and agree with above. Patient was subsequently seen by myself as well. Discussed with patient's son at bedside. Patient dozing in bed. He states that her knees having flared up periodically for years. Says they don't seem to be bothering her much more than usual. Explained that she likely would benefit from an intraarticular steroid injection if they flare up again. Recommended waiting until the pneumonia clears and she is back on a stable insulin regimen since the steroids can affect both. He expressed agreement. Okay to DC from an orthopedic standpoint. She may follow up outpatient on an as-needed basis Darren Velazco D.O. [facility]
--- NOTE | 2019-04-05 13:18 | P.PN ---
Subjective Progress Note Date: 04/05/19 Principal diagnosis: Right lung pneumonia 53-year-old female patient presented to the emergency department yesterday because of altered mentation. The patient is a poor historian. Information was obtained by the son was at the bedside. The patient was feeling sick for the past couple of days and she was having increased dyspnea cough chest tightness and congestion. She progressively also developed some altered mentation. She was not walking and she was feeling extremely weak. For that reason she was brought into the ED. Blood sugar initially was in the low 20s. She received D50 injection and she was started on D5 infusion. Her blood sugars gradually improved following that. She is known to be diabetic and the patient has been taking metformin and trasiba for blood sugar control now patient bases. Chest x-ray was also done and the patient was found to have an extensive right lung consolidation consistent with pneumonia. Her white cell count was 22. The c reatinine was at 1.2. There was a limited troponin leak with troponin level of 0.04. Influenza screen was negative. The patient's the patient's lactic acid level was at 1.9. The patient was started on Rocephin and Zithromax and she was admitted to the telemetry unit and a cardiology consultation and a pulmonary consultation was requested. The CT of the brain showed no acute process. EKG showed sinus tachycardia. No ST segment elevation or depression. No signs of an acute myocardial injury. Heart rate was 105. Currently the patient is on a D5 half-normal saline at the rate of 50 mL an hour. He is on heparin subcu for DVT prophylaxis. Outpatient medications have been resumed. The current antibiotic coverage includes a combination of Zithromax and ceftriaxone and clindamycin. On 04/04/2019 patient seen in follow-up on selective care unit. Patient a little bit more awake today, she denies any worsening dyspnea, lung sounds are clear, she is on 2 L of oxygen with pulse ox of 99%, patient did get up in the chair today, set up for a few hours. He tolerated activity very well. Faint resting in bed, denies any acute distress, no fever or chills. Urine and blood cultures show no growth so far, she was unable to produce sputum specimen for culture. antibiotic coverage includes clindamycin, Cefdinir, Zithromax. Today's labs have been reviewed, showing white blood cell count of 15.5, hemoglobin of 9.8, sodium of 133, potassium is 3.7, chloride is 102, CO2 is 25, BUN of 39, creatinine is 1.7. Lung sounds are essentially clear. On 04/05/2019 patient seen in follow-up on medical surgical floor. Patient is weak, sleepy, not eating much. Lung sounds are coarse, but no wheezing. Did not bring up much sputum. Room air pulse ox is 94%, afebrile, urine and blood cultures showed no growth. Today's labs have been reviewed. Today's labs have been reviewed, showing white blood cell count of 13.2, hemoglobin of 9.6, sodium is 135, the rest of electrolytes were within normal limits, BUN was 33, creatinine is 1.02. Room air pulse ox is 94%, afebrile, hemodynamically stable. Objective - Vital Signs Vital signs: Vital Signs Temp 98.5 F 04/05/19 07:45 Pulse 87 04/05/19 07:45 Resp 16 04/05/19 07:45 BP 141/65 04/05/19 07:45 Pulse Ox 94 L 04/05/19 07:45 Intake & Output 04/04/19 04/05/19 04/05/19 18:59 06:59 18:59 Intake Total 360 Output Total 1400 950 Balance -1040 -950 Intake: Oral 360 Output: Urine 1400 950 Uretheral (Kimbrough) 950 Other: Voiding Method Indwelling Catheter Indwelling Catheter Indwelling Catheter # Bowel Movements 1 1 - Exam GENERAL EXAM: Alert, pleasant, 83-year-old white female comfortable in no apparent distress. HEAD: Normocephalic/atraumatic. EYES: Normal reaction of pupils, equal size. Conjunctiva pink, sclera white. NOSE: Clear with pink turbinates. THROAT: No erythema or exudates. NECK: No masses, no JVD, no thyroid enlargement, no adenopathy. CHEST: No chest wall deformity. Symmetrical expansion. LUNGS: Equal air entry with no crackles, wheeze, rhonchi or dullness. CVS: Regular rate and rhythm, normal S1 and S2, no gallops, no murmurs, no rubs ABDOMEN: Soft, nontender. No hepatosplenomegaly, normal bowel sounds, no guarding or rigidity. EXTREMITIES: No clubbing, no edema, no cyanosis, 2+ pulses and upper and lower extremities. MUSCULOSKELETAL: Muscle strength and tone normal. SPINE: No scoliosis or deformity SKIN: No rashes CENTRAL NERVOUS SYSTEM: Alert and oriented -3. No focal deficits, tone is normal in all 4 extremities. PSYCHIATRIC: Alert and oriented -3. Appropriate affect. Intact judgment and insight. - Labs CBC & Chem 7: 04/05/19 08:57 04/05/19 08:57 Labs: Abnormal Lab Results - Last 24 Hours (Table) 04/04/19 04/04/19 04/04/19 Range/Units 14:26 16:47 20:48 WBC (3.8-10.6) k/uL RBC (3.80-5.40) m/uL Hgb (11.4-16.0) gm/dL Hct (34.0-46.0) % Neutrophils # (1.3-7.7) k/uL Sodium (137-145) mmol/L BUN (7-17) mg/dL Glucose (74-99) mg/dL POC Glucose (mg/dL) 273 H 292 H 135 H (75-99) mg/dL 04/05/19 04/05/19 04/05/19 Range/Units 02:46 07:45 08:57 WBC 13.2 H (3.8-10.6) k/uL RBC 3.44 L (3.80-5.40) m/uL Hgb 9.6 L (11.4-16.0) gm/dL Hct 30.6 L (34.0-46.0) % Neutrophils # 10.9 H (1.3-7.7) k/uL Sodium (137-145) mmol/L BUN (7-17) mg/dL Glucose (74-99) mg/dL POC Glucose (mg/dL) 144 H 120 H (75-99) mg/dL 04/05/19 04/05/19 Range/Units 08:57 11:36 WBC (3.8-10.6) k/uL RBC (3.80-5.40) m/uL Hgb (11.4-16.0) gm/dL Hct (34.0-46.0) % Neutrophils # (1.3-7.7) k/uL Sodium 135 L (137-145) mmol/L BUN 33 H (7-17) mg/dL Glucose 109 H (74-99) mg/dL POC Glucose (mg/dL) 248 H (75-99) mg/dL Microbiology - Last 24 Hours (Table) 04/02/19 20:30 Blood Culture - Preliminary Blood No Growth after 48 hours 04/03/19 09:12 Urine Culture - Final Urine,Catheterized Assessment and Plan Plan: 1 right lung pneumonia, involving the right upper lobe and the patient has a dense airspace disease and currently on accommodation Rocephin and Zithromax and clindamycin. The patient is an acute hypoxic respiratory failure and cognition on 2 L of oxygen by nasal cannula. 2 leukocytosis secondary to above 3 altered mentation secondary to above 4 hypoglycemia maintained on a combination of Tresiba and metformin outpatient basis and the patient was treated with D50 and currently she is on a D5 half- normal infusion. 5diabetes mellitus 6 colon cancer with a previous colectomy 7 hypertension 8 hyperlipidemia 9 troponin leak 10 carotid artery disease with a previous right carotid endarterectomy Plan: Continue current antibiotic coverage, no fever or chills, signs are stable, maintain aspiration precautions. Continue breathing treatments. Follow-up chest x-ray has been ordered for today, we'll await results. Clinically stable. will continue with current treatment I performed a history & physical examination of the patient and discussed their management with my nurse practitioner, Nori Sahu. I reviewed the nurse practitioner's note and agree with the documented findings and plan of care. Lung sounds are positive for clear breath sounds. The findings and the impression was discussed with the patient. I attest to the documentation by the nurse practitioner. Time with Patient: Less than 30
--- NOTE | 2019-04-05 16:33 | XR ---
EXAMINATION TYPE: XR chest 2V DATE OF EXAM: 04/05/2019 COMPARISON: 04/03/2019 HISTORY: 83-year-old female weakness, right lung pneumonia TECHNIQUE: Frontal and lateral views FINDINGS: Low lung volumes. Heart upper limits of normal in size. Hazy density throughout the right lung with i mproving aeration of the previous focal right upper lobe consolidation. Possible trace right effusion . IMPRESSION: Hypoventilatory changes with residual right upper lobe infiltrate, improving from 04/03/2019. Trace ri ght effusion.
[2019-04-05 17:08] LABS: Glucose,Whole Blood 196 mg/dL (75-99)
[2019-04-05] MEDS: traMADol 50 MG TAB PO PRN (20:22)
[2019-04-05] MEDS: CEFDINIR 300 MG CAP PO SCH (20:34)
[2019-04-05 20:39] LABS: Glucose,Whole Blood 328 mg/dL (75-99)
[2019-04-05] MEDS: DEXTROSE 5%-0.45% NACL 1,000 ML IV SCH (20:48)
[2019-04-05] MEDS ORDERED: MELATONIN 3 MG TABLET PO PRN (21:00)
[2019-04-06] MEDS: guaiFENesin SYRUP 100MG/5ML 200 MG/10 ML CUP PO PRN ×2 (01:36→06:26)
--- NOTE | 2019-04-06 01:53 | P.PN ---
Subjective This is a pleasant 53 years old female with past medical history of diabetes mellitus, hyperlipidemia, hypertension, rheumatoid arthritis, colon cancer. Presents with altered mental status associated with hyperglycemia, patient is poor historian. Son is at bedside who lives with her. Patient has been feeling sick for the last couple days with a breathing problems And coughing.. Patient has been not waking up the whole morning yesterday afternoon when this came back. So the [place] to the emergency room. On admission her blood sugar w as in the 20s and she received D50 his injections and placed on D5 fluids. Her sugars start correcting to normal levels and patient started waking up. This morning patient is more awake but looks tired and elevated disoriented. She knows where she is in the hospital but she cannot give much information. As per son patient was started on new dose insulin last week by her PCP Dr. Waters. On admission also patient was tachypneic and chest x-ray showing right pneumonia. Patient is a known diabetic was on metformin 500 mg daily and insulin decludec 40 units daily On admission patient is been afebrile. Blood pressure dropped from 158/95 down to 1 or 2/78. Currently her blood pressure 133/67. She is saturating 95% and 2 L nasal cannula and respiratory 28/m. She is mildly tachycardic around 100. Labs reviewed showing WBC of 15.4 K. Risks of CBC is unremarkable. INR is within normal. Sugar was troponin down to 55 while on therapy, currently her sugar is 92. AST mildly elevated at 65, rest of liver enzymes are within normal. Troponin is negative less than 0.012. EKG showing sinus tachycardia at 105 with QTC 467, no significant ST-T changes.brain CT: No acute event. Chest x-ray: Prominent pulmonary consolidation on the right lung reviewed urinalysis shows cloudy and showing large leukocyte esterase On admission patient been resuscitated with IV fluids and place it on D5 fluids. Also she was started on antibiotic Zithromax and ceftriaxone. 04/04/2019 Today patient is breathing better with less dyspnea and no chest pain. His scalp is improving. She is awake and alert but she is in distress because of significant pain in her left knee, Then he does not look swollen or tender or red. As per patient and son at bedside patient has degenerative joint disease and usually have the frequent pain in her left knee. He agrees for lidocaine patch and increase in her pain medication. Her going to check left knee x-rays. Patient is hemodynamically stable and she is saturating 91% on 2 L. WBC is coming down from 22.1 down to 15.5 K. Hemoglobin 9.8 today. Creatinine 1.2. Sugar is controlled. Urine culture show no growth. She is currently on clindamycin, cefdinir and Zithromax. Cardiology and pulmonary input is appreciated. 04/05/2019 today pt is feeling better , she is awake and alert , no resp distress, no chest pain , still has mild dyspnea while in bed, she has significant cough. and she is spiking low grade temp , she is thought not ready for discharge . pulmonary team agree with keep monitoring for now and to continue with the same management , she is to continue with clindamycin , zithromax, and cefdiner, and she is on gentle hydration . ortho team evalauted pt for abnormal xray of her left knee, mostly due to tri-compartments osteoarthritis of the left knee osteoarthritis of the left knee, she will need outpt management, her pain is b alexy controlled. CONSTITUTIONAL: No fever, no malaise, no fatigue. HEENT: No recent visual problems or hearing problems. Denied any sore throat. CARDIOVASCULAR: No orthopnea, PND, no palpitations, no syncope. PULMONARY: no hemoptysis. GASTROINTESTINAL: No diarrhea, no nausea, no vomiting, no abdominal pain. Normoactive bowel sounds. NEUROLOGICAL: No headaches, no weakness, no numbness. HEMATOLOGICAL: Denies any bleeding or petechiae. GENITOURINARY: Denies any burning micturition, frequency, or urgency. ENDOCRINE: Denies any polyuria or polydipsia. Medication: Tylenol 650 mg, aspirin 81 mg, Zithromax 500 mg, Omnicef 300 mg, clindamycin 300 mg, dextrose half-normal saline at 50 L/h, Pepcid 20 mg, heparin 5000 units, NovoLog insulin sliding scale, metoprolol 25 mg, morphine sulfate 2 mg, Ultram 50 mg, Tigan 300 mg. Objective - Vital Signs Vital signs: Vital Signs Temp 98.9 F 04/05/19 20:36 Pulse 83 04/05/19 20:36 Resp 16 04/05/19 20:36 BP 163/77 04/05/19 20:36 Pulse Ox 95 04/05/19 20:36 Intake & Output 04/05/19 04/05/19 04/06/19 06:59 18:59 06:59 Output Total 950 700 Balance -950 -700 Output: Urine 950 700 Uretheral (Kimbrough) 950 700 Other: Voiding Method Indwelling Catheter Indwelling Catheter # Bowel Movements 1 1 - Exam -GENERAL: The patient is alert and oriented x2-3, not in any acute distress. Obese HEENT: Pupils are round and equally reacting to light. EOMI. No scleral icterus. No conjunctival pallor. Normocephalic, atraumatic. No pharyngeal erythema. No thyromegaly. CARDIOVASCULAR: S1 and S2 present. No murmurs, rubs, or gallops. -PULMONARY: Chest is clear to auscultation, no wheezing or crackles. The. Right side harsh breath sounds ABDOMEN: Soft, nontender, nondistended, normoactive bowel sounds. No palpable organomegaly. MUSCULOSKELETAL: No joint swelling or deformity. EXTREMITIES: No cyanosis, clubbing, or pedal edema. Rheumatoid arthritis fingers, chronic- NEUROLOGICAL: Gross neurological examination did not reveal any focal deficits. SKIN: No rashes. - Labs CBC & Chem 7: 04/05/19 08:57 04/05/19 08:57 Labs: Abnormal Lab Results - Last 24 Hours (Table) 04/05/19 04/05/19 04/05/19 Range/Units 02:46 07:45 08:57 WBC 13.2 H (3.8-10.6) k/uL RBC 3.44 L (3.80-5.40) m/uL Hgb 9.6 L (11.4-16.0) gm/dL Hct 30.6 L (34.0-46.0) % Neutrophils # 10.9 H (1.3-7.7) k/uL Sodium (137-145) mmol/L BUN (7-17) mg/dL Glucose (74-99) mg/dL POC Glucose (mg/dL) 144 H 120 H (75-99) mg/dL 04/05/19 04/05/19 04/05/19 Range/Units 08:57 11:36 17:07 WBC (3.8-10.6) k/uL RBC (3.80-5.40) m/uL Hgb (11.4-16.0) gm/dL Hct (34.0-46.0) % Neutrophils # (1.3-7.7) k/uL Sodium 135 L (137-145) mmol/L BUN 33 H (7-17) mg/dL Glucose 109 H (74-99) mg/dL POC Glucose (mg/dL) 248 H 196 H (75-99) mg/dL 04/05/19 Range/Units 20:37 WBC (3.8-10.6) k/uL RBC (3.80-5.40) m/uL Hgb (11.4-16.0) gm/dL Hct (34.0-46.0) % Neutrophils # (1.3-7.7) k/uL Sodium (137-145) mmol/L BUN (7-17) mg/dL Glucose (74-99) mg/dL POC Glucose (mg/dL) 328 H (75-99) mg/dL Microbiology - Last 24 Hours (Table) 04/02/19 20:30 Blood Culture - Preliminary Blood No Growth after 72 hours Assessment and Plan Assessment: Acute community-acquired right pneumonia Possible UTI, less likely History of diabetes mellitus with hyperglycemia Hyponatremia Tri-compartment osteoarthritis of the left knee Essential hypertension Hyperlipidemia History of colon cancer, about 10 years ago. therapy currently history of rheumatoid arthritis Plan: This is a pleasant 83 years old female who presents with pneumonia and hypoglycemia. Continue with glucose monitoring and management and try to keep it in the normal range. Continue with insulin sliding scale, give glucagon when necessary for hypoglycemia. Continue with antibiotics and IV fluids. Call pulmonary consult. Check influenza Labs and medication were reviewed.. Continue same treatment. Continue with sy mptomatic treatment. Resume home medication. Monitor lytes and vitals. DVT and GI prophylaxis. Further recommendations of the clinical course of the patient DVT prophylaxis: Subcutaneous heparin GI Prophylaxis: Pepcid PT/OT: Pending Prognosis is guarded
[2019-04-06 02:04] LABS: Glucose,Whole Blood 173 mg/dL (75-99)
[2019-04-06] MEDS: CLINDAMYCIN 150 MG CAP PO SCH ×2 (04:47→11:22)
[2019-04-06 06:50] LABS: Glucose,Whole Blood 158 mg/dL (75-99)
[2019-04-06] MEDS: traMADol 50 MG TAB PO PRN ×2 (07:25→12:38)
[2019-04-06] MEDS: METOPROLOL SUCCINATE (ER) 25 MG TAB.ER.24H PO SCH (07:26)
[2019-04-06] MEDS: AZITHROMYCIN 500 MG TAB PO SCH (07:26)
[2019-04-06] MEDS: HEPARIN SODIUM,PORCINE 5,000 UNIT/ML 1 ML VIAL SQ SCH (07:26)
[2019-04-06] MEDS: ASPIRIN 81 MG PO SCH (07:26)
[2019-04-06] MEDS: FAMOTIDINE 20 MG TAB PO SCH (07:26)
[2019-04-06] MEDS: LIDOCAINE 5% PATCH TOPICAL SCH (07:26)
[2019-04-06] MEDS: CEFDINIR 300 MG CAP PO SCH (07:26)
[2019-04-06] MEDS: INSULIN ASPART (NovoLOG) 100 UNIT/ML VIAL SQ SCH ×2 (07:27→12:42)
[2019-04-06 08:57] LABS: Basophils % (A) 0 %; Eosinophils # (A) 0.1 k/uL (0-0.7); Eosinophils % (A) 1 %; HCT 28.2 % (34.0-46.0); HGB 8.9 gm/dL (11.4-16.0); Lymphocytes # (A) 1.4 k/uL (1.0-4.8); Lymphocytes % (A) 15 %; MCH 27.9 pg (25.0-35.0); MCHC 31.6 g/dL (31.0-37.0); MCV 88.3 fL (80.0-100.0); Mean Platelet Volume 6.8; Monocytes # (A) 0.8 k/uL (0-1.0); Monocytes % (A) 8 %; Neutrophils # (A) 7.2 k/uL (1.3-7.7); Neutrophils % (A) 73 %; Platelet Count 296 k/uL (150-450); RBC 3.19 m/uL (3.80-5.40); RDW 13.7 % (11.5-15.5); WBC 9.8 k/uL (3.8-10.6)
[2019-04-06 09:14] LABS: Calcium 8.7 mg/dL (8.4-10.2); Potassium 3.7 mmol/L (3.5-5.1)
[2019-04-06 12:39] LABS: Glucose,Whole Blood 190 mg/dL (75-99)
[2019-04-06 13:00] VITALS: BP 147/71; PULSE 72; TEMP 98.3
--- NOTE | 2019-04-06 13:52 | P.PN ---
Subjective Progress Note Date: 04/06/19 53-year-old female patient presented to the emergency department yesterday because of altered mentation. The patient is a poor historian. Information was obtained by the son was at the bedside. The patient was feeling sick for the past couple of days and she was having increased dyspnea cough chest tightness and congestion. She progressively also developed some altered mentation. She was not walking and she was feeling extremely weak. For that reason she was brought into the ED. Blood sugar initially was in the low 20s. She received D50 injection and she was started on D5 infusion. Her blood sugars gradually improved following that. She is known to be diabetic and the patient has been t aking metformin and trasiba for blood sugar control now patient bases. Chest x- ray was also done and the patient was found to have an extensive right lung consolidation consistent with pneumonia. Her white cell count was 22. The creatinine was at 1.2. There was a limited troponin leak with troponin level of 0.04. Influenza screen was negative. The patient's the patient's lactic acid level was at 1.9. The patient was started on Rocephin and Zithromax and she was admitted to the telemetry unit and a cardiology consultation and a pulmonary consultation was requested. The CT of the brain showed no acute process. EKG showed sinus tachycardia. No ST segment elevation or depression. No signs of an acute myocardial injury. Heart rate was 105. Currently the patient is on a D5 half-normal saline at the rate of 50 mL an hour. He is on heparin subcu for DVT prophylaxis. Outpatient medications have been resumed. The current antibiotic coverage includes a combination of Zithromax and ceftriaxone and clindamycin. On 04/04/2019 patient seen in follow-up on selective care unit. Patient a little bit more awake today, she denies any worsening dyspnea, lung sounds are clear, she is on 2 L of oxygen with pulse ox of 99%, patient did get up in the chair today, set up for a few hours. He tolerated activity very well. Faint resting in bed, denies any acute distress, no fever or chills. Urine and blood cultures show no growth so far, she was unable to produce sputum specimen for culture. antibiotic coverage includes clindamycin, Cefdinir, Zithromax. Today's labs have been reviewed, showing white blood cell count of 15.5, hemoglobin of 9.8, sodium of 133, potassium is 3.7, chloride is 102, CO2 is 25, BUN of 39, creatinine is 1.7. Lung sounds are essentially clear. On 04/05/2019 patient seen in follow-up on medical surgical floor. Patient is weak, sleepy, not eating much. Lung sounds are coarse, but no wheezing. Did not bring up much sputum. Room air pulse ox is 94%, afebrile, urine and blood cultures showed no growth. Today's labs have been reviewed. Today's labs have been reviewed, showing white blood cell count of 13.2, hemoglobin of 9.6, sodium is 135, the rest of electrolytes were within normal limits, BUN was 33, creatinine is 1.02. Room air pulse ox is 94%, afebrile, hemodynamically stable. On 04/06/2019, the patient is improved. The chest extremities that showed improvement in the right lung on infiltrates. She is currently on room air. No significant cough or sputum production. Unable to bring up much sputum. No fever or chills. Tolerating the diet. She is weak and she was a cardiac rehabilitation for that reason she is going to rehab following her discharge. In terms of antibiotic coverage, worsening in this patient to a combination of Zithromax and Omnicef and clindamycin orally. Objective - Vital Signs Vital signs: Vital Signs Temp 98.3 F 04/06/19 12:45 Pulse 72 04/06/19 12:45 Resp 16 04/06/19 12:45 BP 147/71 04/06/19 12:45 Pulse Ox 98 04/06/19 12:45 Intake & Output 04/05/19 04/06/19 04/06/19 18:59 06:59 18:59 Output Total 700 Balance -700 Output: Urine 700 Uretheral (Kimbrough) 700 Stool 0 Other: Voiding Method Indwelling Catheter Indwelling Catheter Indwelling Catheter # Bowel Movements 1 1 - Exam GENERAL EXAM: Alert, pleasant, 83-year-old white female comfortable in no apparent distress. HEAD: Normocephalic/atraumatic. EYES: Normal reaction of pupils, equal size. Conjunctiva pink, sclera white. NOSE: Clear with pink turbinates. THROAT: No erythema or exudates. NECK: No masses, no JVD, no thyroid enlargement, no adenopathy. CHEST: No chest wall deformity. Symmetrical expansion. LUNGS: Equal air entry with no crackles, wheeze, rhonchi or dullness. CVS: Regular rate and rhythm, normal S1 and S2, no gallops, no murmurs, no rubs ABDOMEN: Soft, nontender. No hepatosplenomegaly, normal bowel sounds, no guarding or rigidity. EXTREMITIES: No clubbing, no edema, no cyanosis, 2+ pulses and upper and lower extremities. MUSCULOSKELETAL: Muscle strength and tone normal. SPINE: No scoliosis or deformity SKIN: No rashes CENTRAL NERVOUS SYSTEM: Alert and oriented -3. No focal deficits, tone is normal in all 4 extremities. PSYCHIATRIC: Alert and oriented -3. Appropriate affect. Intact judgment and insight. - Labs CBC & Chem 7: 04/06/19 08:01 04/06/19 08:01 Labs: Abnormal Lab Results - Last 24 Hours (Table) 04/05/19 04/05/19 04/06/19 Range/Units 17:07 20:37 02:00 RBC (3.80-5.40) m/uL Hgb (11.4-16.0) gm/dL Hct (34.0-46.0) % Sodium (137-145) mmol/L BUN (7-17) mg/dL Glucose (74-99) mg/dL POC Glucose (mg/dL) 196 H 328 H 173 H (75-99) mg/dL 04/06/19 04/06/19 04/06/19 Range/Units 06:48 08:01 08:01 RBC 3.19 L (3.80-5.40) m/uL Hgb 8.9 L (11.4-16.0) gm/dL Hct 28.2 L (34.0-46.0) % Sodium 135 L (137-145) mmol/L BUN 29 H (7-17) mg/dL Glucose 149 H (74-99) mg/dL POC Glucose (mg/dL) 158 H (75-99) mg/dL 04/06/19 Range/Units 12:38 RBC (3.80-5.40) m/uL Hgb (11.4-16.0) gm/dL Hct (34.0-46.0) % Sodium (137-145) mmol/L BUN (7-17) mg/dL Glucose (74-99) mg/dL POC Glucose (mg/dL) 190 H (75-99) mg/dL Microbiology - Last 24 Hours (Table) 04/02/19 20:30 Blood Culture - Preliminary Blood No Growth after 72 hours Assessment and Plan Plan: 1 right lung pneumonia, involving the right upper lobe and the patient has a dense airspace disease and currently on accommodation Rocephin and Zithromax and clindamycin. The patient is an acute hypoxic respiratory failure and cognition on 2 L of oxygen by nasal cannula. 2 leukocytosis secondary to above 3 altered mentation secondary to above 4 hypoglycemia maintained on a combination of Tresiba and metformin outpatient basis and the patient was treated with D50 and currently she is on a D5 half- normal infusion. 5 diabetes mellitus 6 colon cancer with a previous colectomy 7 hypertension 8 hyperlipidemia 9 troponin leak, 10 carotid artery disease with a previous right carotid endarterectomy Plan Clinically the patient is improved. We'll switch this patient oral antibiotics as mentioned above. She is currently on room air. She is profoundly weak and she is discharged from the pulmonary standpoint. The white cell count is also down to 9.8.
--- NOTE | 2019-04-06 14:31 | P.DS ---
Providers Date of admission: 04/02/19 19:23 Expected date of discharge: 04/06/19 Attending physician: Lang Milner MD Consults: 04/03/19 07:11 Consult Physician Urgent Consulting Provider: Sharmila Bowser Consult Reason/Comments: pneumonia Do you want consulting provider notified?: Yes 04/03/19 08:43 Consult Physician Urgent Consulting Provider: Tristan Avila Consult Reason/Comments: elevated yonathan Do you want consulting provider notified?: Yes Primary care physician: Stated None Hospital Course: Discharge diagnosis Acute community-acquired right pneumonia Hypoglycemia. Insulin is on hold. Possible UTI, less likely History of diabetes mellitus with hyperglycemia Hyponatremia Tri-compartment osteoarthritis of the left knee Essential hypertension Hyperlipidemia History of colon cancer, about 10 years ago. therapy currently history of rheumatoid arthritis Hospital course This is a pleasant 53 years old female with past medical history of diabetes mellitus, hyperlipidemia, hypertension, rheumatoid arthritis, colon cancer. Presents with altered mental status associated with hyperglycemia, patient is poor historian. Son is at bedside who lives with her. Patient has been feeling sick for the last couple days with a breathing problems And coughing.. Patient has been not waking up the whole morning yesterday afternoon when this came back. So the [place] to the emergency room. On admission her blood sugar was in the 20s and she received D50 his injections and placed on D5 fluids. Her sugars start correcting to normal levels and patient started waking up. This morning patient is more awake but looks tired and elevated disoriented. She knows where she is in the hospital but she cannot give much information. As per son patient was started on new dose insulin last week by her PCP Dr. Waters. On admission also patient was tachypneic and chest x-ray showing right pneumonia. Patient is a known diabetic was on metformin 500 mg daily and insulin decludec 40 units daily On admission patient is been afebrile. Blood pressure dropped from 158/95 down to 1 or 2/78. Currently her blood pressure 133/67. She is saturating 95% and 2 L nasal cannula and respiratory 28/m. She is mildly tachycardic around 100. Labs reviewed showing WBC of 15.4 K. Risks of CBC is unremarkable. INR is within normal. Sugar was troponin down to 55 while on therapy, currently her sugar is 92. AST mildly elevated at 65, rest of liver enzymes are within normal. Troponin is negative less than 0.012. EKG showing sinus tachycardia at 105 with QTC 467, no significant ST-T changes.brain CT: No acute event. Chest x-ray: Prominent pulmonary consolidation on the right lung reviewed urinalysis shows cloudy and showing large leukocyte esterase On admission patient been resuscitated with IV fluids and place it on D5 fluids. Also she was started on antibiotic Zithromax and ceftriaxone. 04/04/2019 Today patient is breathing better with less dyspnea and no chest pain. His scalp is improving. She is awake and alert but she is in distress because of significant pain in her left knee, Then he does not look swollen or tender or red. As per patient and son at bedside patient has degenerative joint disease and usually have the frequent pain in her left knee. He agrees for lidocaine patch and increase in her pain medication. Her going to check left knee x-rays. Patient is hemodynamically stable and she is saturating 91% on 2 L. WBC is coming down from 22.1 down to 15.5 K. Hemoglobin 9.8 today. Creatinine 1.2. Sugar is controlled. Urine culture show no growth. She is currently on clindamycin, cefdinir and Zithromax. Cardiology and pulmonary input is appreciated. 04/05/2019 today pt is feeling better , she is awake and alert , no resp distress, no chest pain , still has mild dyspnea while in bed, she has significant cough. and she is spiking low grade temp , she is thought not ready for discharge . pulmonary team agree with keep monitoring for now and to continue with the same management , she is to continue with clindamycin , zithromax, and cefdiner, and she is on gentle hydration . ortho team evalauted pt for abnormal xray of her left knee, mostly due to tri-compartments osteoarthritis of the left knee osteoarthritis of the left knee, she will need outpt management, her pain is better controlled. 04/06/2019 Patient's mentation seems to be better today. Able to follow commands. Denied any complaints of pain. No complaints of chest pain or worsening shortness of breath. Saturating well on room air. No fever no chills. Tolerating oral diet. Kimbrough cath and has been discontinued and patient does have spontaneous voiding. Patient being discharged to rehab. Patient was able to ambulate with a wheeled walker as per PT notes. Cleared from pulmonary standpoint. Patient is being discharged today. Physical examination GENERAL EXAM: Alert, pleasant, 83-year-old white female comfortable in no apparent distress. HEAD: Normocephalic/atraumatic. EYES: Normal reaction of pupils, equal size. Conjunctiva pink, sclera white. NOSE: Clear with pink turbinates. THROAT: No erythema or exudates. NECK: No masses, no JVD, no thyroid enlargement, no adenopathy. CHEST: No chest wall deformity. Symmetrical expansion. LUNGS: Equal air entry with no crackles, wheeze, rhonchi or dullness. CVS: Regular rate and rhythm, normal S1 and S2, no gallops, no murmurs, no rubs ABDOMEN: Soft, nontender. No hepatosplenomegaly, normal bowel sounds, no guarding or rigidity. EXTREMITIES: No clubbing, no edema, no cyanosis, 2+ pulses and upper and lower extremities. MUSCULOSKELETAL: Muscle strength and tone normal. SPINE: No scoliosis or deformity SKIN: No rashes CENTRAL NERVOUS SYSTEM: Alert and oriented -3. No focal deficits, tone is normal in all 4 extremities. PSYCHIATRIC: Alert and oriented -3. Appropriate affect. Intact judgment and insight. Vital Signs - 8 hr / 12:45 Temperature 98.3 F Pulse Rate [ 72 Pulse Oximetery ] Respiratory 16 Rate Blood Pressure 147/71 [Left Arm] O2 Sat by Pulse 98 Oximetry Total time taken greater than 35 minutes including 18 minutes for counseling and coordination of care. Patient Condition at Discharge: Fair Plan - Discharge Summary Discharge Rx Participant: No New Discharge Prescriptions: New Aspirin 81 mg PO DAILY #30 chew Metoprolol Succinate (ER) [Toprol XL] 25 mg PO DAILY #30 tab.er.24h Enalapril [Vasotec] 5 mg PO DAILY #30 tablet Clindamycin [Cleocin] 300 mg PO Q8H 4 Days #12 cap Lidocaine 5% Patch [Lidoderm 5% Patch] 1 patch TOPICAL DAILY #5 patch INSULIN ASPART (NovoLOG) [NovoLOG (formulary)] 0 unit SQ ACHS vial Azithromycin [Zithromax] 500 mg PO DAILY #4 tab Cefdinir [Omnicef] 300 mg PO BID 4 Days #8 cap Continue traMADol HCL [Ultram] 50 mg PO Q6HR PRN PRN Reason: Pain metFORMIN HCL ER [Glucophage Xr] 500 mg PO DAILY Atorvastatin [Lipitor] 40 mg PO DAILY Cholecalciferol [Vitamin D3 (25 Mcg = 1000 Iu)] 1,000 unit PO DAILY Discontinued Enalapril/Hydrochlorothiazide [Enalapril-Hctz 10-25 mg Tablet] 1 tab PO DAILY Insulin Degludec [Tresiba Flextouch U-100] 40 units SQ DAILY Discharge Medication List Atorvastatin [Lipitor] 40 mg PO DAILY 04/02/19 [History] Cholecalciferol [Vitamin D3 (25 Mcg = 1000 Iu)] 1,000 unit PO DAILY 04/02/19 [History] metFORMIN HCL ER [Glucophage Xr] 500 mg PO DAILY 04/02/19 [History] traMADol HCL [Ultram] 50 mg PO Q6HR PRN 04/02/19 [History] Aspirin 81 mg PO DAILY #30 chew 04/06/19 [Rx] Azithromycin [Zithromax] 500 mg PO DAILY #4 tab 04/06/19 [Rx] Cefdinir [Omnicef] 300 mg PO BID 4 Days #8 cap 04/06/19 [Rx] Clindamycin [Cleocin] 300 mg PO Q8H 4 Days #12 cap 04/06/19 [Rx] Enalapril [Vasotec] 5 mg PO DAILY #30 tablet 04/06/19 [Rx] INSULIN ASPART (NovoLOG) [NovoLOG (formulary)] 0 unit SQ ACHS vial 04/06/19 [Rx] Lidocaine 5% Patch [Lidoderm 5% Patch] 1 patch TOPICAL DAILY #5 patch 04/06/19 [Rx] Metoprolol Succinate (ER) [Toprol XL] 25 mg PO DAILY #30 tab.er.24h 04/06/19 [Rx] Follow up Appointment(s)/Referral(s): [facility], [NON-STAFF] - Darren Velazco DO [Medical Doctor] - As Needed None,Stated [Primary Care Provider] - 1-2 days Discharge Disposition: TRANSFER TO SNF/ECF
== END 2019-04-06 16:10 | DRG 193 ==
LOC: EDBD → EC 16:31 → 3SCARD 19:23 → 2SICU 04-03 00:25 → 3SCARD 04-03 05:09 → 4MS4W 04-04 15:59
PROVIDERS: ADMIT Internal Medicine; ATTEND Internal Medicine
DX: J18.9 Pneumonia, unspecified organism (principal); J96.01 Acute respiratory failure with hypoxia; E87.1 Hypo-osmolality and hyponatremia; E11.649 Type 2 diabetes mellitus with hypoglycemia without coma; M06.9 Rheumatoid arthritis, unspecified; I10 Essential (primary) hypertension; M17.12 Unilateral primary osteoarthritis, left knee; E78.5 Hyperlipidemia, unspecified; Z79.4 Long term (current) use of insulin; Z79.899 Other long term (current) drug therapy; Z85.038 Personal history of other malignant neoplasm of large intestine; Z90.49 Acquired absence of other specified parts of digestive tract; Z87.891 Personal history of nicotine dependence; Z86.79 Personal history of other diseases of the circulatory system; Z88.2 Allergy status to sulfonamides
CPT/HCPCS: 36415; 70450; 71046; 80048; 80053; 80076; 81001; 82533; 83605; 83735; 84484; 85025; 85610; 85730; 87040; 87086; 87502; 93306; 96361; 96365; 96366; 96367; 96372; 96375; 96376; 99285